=== PATIENT | female | born 1940 | race Caucasian/White ===

== ENCOUNTER → 2017-05-10 | Outpatient (CLI) | payer MEDICARE ==
--- NOTE | 2017-05-10 17:47 | Diagnostic Imaging Report ---
INDICATION: Head pain. AP and lateral views of the head are obtained. COMPARISON: There is no previous study for comparison. FINDINGS: There is an asymmetric curvilinear lucency which appears to reside within the right parietal bone or posterior right frontal bone. This is seen on the AP image and not definitely confirmed on the lateral view. Otherwise, there is no evidence of acute abnormality. No paranasal sinus air-fluid level is appreciated. IMPRESSION: Curvilinear lucency could represent a nondisplaced fracture involving the right frontal or parietal bone. If indicated, CT has greater sensitivity for calvarial assessment. Dictated by: Dictated on workstation # [id number]
== END ==
LOC: RAD 17:16
PROVIDERS: ATTEND Family Medicine
DX: R93.0 Abnormal findings on diagnostic imaging of skull and head, not elsewhere classified (principal)
CPT/HCPCS: 70250

== ENCOUNTER → 2020-08-09 | Outpatient (CLI) | payer MEDICARE, MEDICAID ==
--- NOTE | 2020-08-09 15:48 | Diagnostic Imaging Report ---
INDICATION: Left shoulder pain. TECHNIQUE/COMPARISON: AP, oblique, and transscapular views of the left shoulder were obtained. There is no prior study for comparison. FINDINGS: There is an old fracture deformity of the left proximal humerus involving the humeral neck and proximal shaft. There is no acute fracture. There is degenerative change of the glenohumeral and AC joints of moderate severity. IMPRESSION: Chronic changes of the glenohumeral joint and AC joint. Old healed fracture deformity of the left humeral neck and proximal shaft. No acute appearing finding. Dictated by: Dictated on workstation # [id number]
--- NOTE | 2020-08-09 15:50 | Diagnostic Imaging Report ---
INDICATION: Right hip pain. TECHNIQUE: AP and oblique views of the right hip were obtained at 2:30 PM. FINDINGS: No acute fracture or acute bony abnormality is seen. There is advanced degenerative change of the right hip with severe joint space narrowing and osteophyte formation. There is osteopenia. IMPRESSION: Advanced degenerative findings of the right hip with no acute abnormality. Dictated by: Dictated on workstation # [id number]
--- NOTE | 2020-08-09 16:01 | Diagnostic Imaging Report ---
INDICATION: Left arm pain. TECHNIQUE: AP and lateral views of the left humerus were obtained. FINDINGS: There is old fracture deformity in the humeral neck and proximal shaft. There is no previous study for comparison. There is no new fracture or lytic or blastic lesion. IMPRESSION: Old proximal humeral fracture deformity. No acute abnormality of the left humerus. Dictated by: Dictated on workstation # [id number]
--- NOTE | 2020-08-09 16:08 | Diagnostic Imaging Report ---
INDICATION: Recent fall. Now with neck pain. COMPARISON: None. FINDINGS: Frontal, lateral, and open-mouth radiographic views of the cervical spine were obtained. There is a type I fracture of the odontoid. The more cephalad fracture fragment is mildly subluxed to the left as well. Additionally, there is asymmetry of the distance between the base of the dens and [place]. The lateral view shows slight grade 1 anterolisthesis at C4-C5 and slight grade 1 retrolisthesis at C5-C6. There is no evidence of jumped facets. The vertebral body heights are maintained. There are mild multilevel degenerative changes consisting of intervertebral disc height loss with multilevel facet arthropathy, left greater than right. IMPRESSION: 1. Type I odontoid fracture. Further evaluation with CT or MRI is recommended for complete characterization. 2. The report was called and faxed to Michelle in the office of Dr. Fernández by [email or web address]@4:06 PM. Dictated by: Dictated on workstation # [id number]
--- NOTE | 2020-08-09 16:19 | Diagnostic Imaging Report ---
INDICATION: Fall and back pain. TIME OF EXAM: 2:28 PM. TECHNIQUE: Three views of the lumbar spine were obtained. FINDINGS: The curvature and alignment are normal apart from minimal anterolisthesis of L4 on L5. The vertebral body heights are well-maintained. No acute compression fracture is detected. There is generalized degenerative disc disease with variable disc space narrowing. The aorta is partially calcified. IMPRESSION: Lumbar spondylosis. No acute bony abnormality is detected. Dictated by: Dictated on workstation # [id number]
== END ==
LOC: RAD 13:49
PROVIDERS: ATTEND Family Medicine
DX: S12.110A Anterior displaced Type II dens fracture, initial encounter for closed fracture (principal); S12.9XXA Fracture of neck, unspecified, initial encounter; S42.202D Unspecified fracture of upper end of left humerus, subsequent encounter for fracture with routine healing; M47.816 Spondylosis without myelopathy or radiculopathy, lumbar region; M16.9 Osteoarthritis of hip, unspecified; W19.XXXA Unspecified fall, initial encounter; W19.XXXD Unspecified fall, subsequent encounter
CPT/HCPCS: 72040; 72100; 73030; 73060; 73502

== ENCOUNTER → 2020-08-10 | Outpatient (CLI) | payer MEDICARE, MEDICAID ==
--- NOTE | 2020-08-10 10:03 | Diagnostic Imaging Report ---
PROCEDURE: CT cervical spine without contrast. TECHNIQUE: Multiple contiguous axial images were obtained through the cervical spine without the use of intravenous contrast. Sagittal and coronal reformations were then performed. Auto Exposure Controls were utilized during the CT exam to meet ALARA standards for radiation dose reduction. INDICATION: Fall with type I odontoid fracture. COMPARISON: Correlation is made with cervical spine radiograph from one day earlier. FINDINGS: Curvature of the cervical spine is normal. There is minimal anterolisthesis at C4 on C5. Multilevel degenerative disc disease is noted, greatest at C5-C6 and C6-C7 levels, with disc space narrowing and marginal osteophyte formation. Uncovertebral joint degenerative change results in severe left-sided neural foraminal stenosis at C3-C4 level as well as the C4-C5 level. There are severe bilateral neural foraminal stenosis at C5-C6 and C6-C7 levels. There are marked hypertrophic facet degenerative changes on the left at the C2-C3, C3-C4 and C4-C5 levels. No definite fracture is identified. In particular, the odontoid appears to be intact. No odontoid fracture is identified. IMPRESSION: Severe cervical spondylosis. No acute bony abnormality is identified. Dictated by: Dictated on workstation # [id number]
== END ==
LOC: RAD 11:45
PROVIDERS: ATTEND Family Medicine
DX: M47.812 Spondylosis without myelopathy or radiculopathy, cervical region (principal)
CPT/HCPCS: 72125

== ENCOUNTER → 2021-02-22 | Outpatient (CLI) | payer MEDICARE, MEDICAID | LOC: CARD 14:30 | PROVIDERS: ATTEND Family Medicine | DX: I49.9 Cardiac arrhythmia, unspecified (principal) | CPT/HCPCS: 93005 ==

== ENCOUNTER → 2021-03-01 | Outpatient (CLI) | payer MEDICARE, MEDICAID | LOC: CARD 11:00 | PROVIDERS: ATTEND Family Medicine | DX: I49.9 Cardiac arrhythmia, unspecified (principal); I51.7 Cardiomegaly | CPT/HCPCS: 93225; 93226; 93306 ==

== ENCOUNTER → 2021-06-07 | Outpatient (CLI) | payer MEDICARE, MEDICAID ==
[~2021-06-07] MED LIST: CATHETER FLUSH 10 ML SYR IV PRN; REGADENOSON 0.4 MG/5 ML SYR (LEXISCAN) IV ONE
[2021-06-07 09:27] VITALS: BP 135/81
--- NOTE | 2021-06-07 12:38 | Cardiology Stress Test Report ---
Stress Test Report Date of Procedure/Referring: Date of Procedure: Jun 07, 2021 PCP Marilee Monzon MD Admitting Physician Stacia Fernández DO Indications: HTN Baseline Heart Rate: 54 Baseline Blood Pressure: Blood Pressure Systolic: 135 Blood Pressure Diastolic: 81 Baseline Vitals Vital Signs Date Time Temp Pulse Resp B/P (MAP) Pulse Ox O2 Delivery O2 Flow Rate FiO2 06/07/21 09:27 54 18 135/81 (99) 98 Room Air Baseline EKG: Baseline EKG: NSR Summary After explaining the procedure to the patient, she signed a consent and then brought to the stress nuclear laboratory. Patient received 0.4 mg Lexiscan for stress test, ECG, heart rate and blood pressure were monitored continuously. Resting and stress dose of radio tracer were injected, imaging was acquired and reviewed in short axis, horizontal long axis and vertical long axis views. TID: 1.05 SSS: 6 SDS: 3 EF: 50 1. Patient tolerated Lexiscan well 2. Extracardiac attenuation with breast attenuation and the left arm was kept on the side during acquiring images, there is reversible ischemia involving the mid to apical anterior wall and anterior lateral wall, could be secondary to the extracardiac attenuation 3. Normal left ventricular size, EF 50% MARILEE MONZON MD Jun 07, 2021 12:38
== END ==
LOC: CARD 08:00
PROVIDERS: ATTEND Internal Medicine Cardiovascular Disease
DX: I10 Essential (primary) hypertension (principal); I25.10 Atherosclerotic heart disease of native coronary artery without angina pectoris
CPT/HCPCS: 78452; 93017; A9502

== ENCOUNTER 2021-06-28 11:00 | Day surgery (SDC) | payer MEDICARE, MEDICAID ==
[~2021-06-28] VITALS: Ht 152.4 cm; Wt 82.6 kg
[2021-06-28] VITALS (15 sets, daily range): BP systolic 113–152; BP diastolic 55–82
--- OUTSIDE RECORDS SUMMARY | 2021-06-28 08:55 | XMS REPORT | CCD ---
Author Author Kimberley Fernández D.O. Organization [facility] Address [address] [place] [address] Phone Care Team Providers [employer] Maker Name Role Phone PP Unavailable CCM Unavailable Summary Purpose Interface Exchange Insurance Providers Payer name Policy type / Coverage type Covered green party ID Effective Begin Date Effective End Date WPS MEDICARE PART B [place] Medicare Part B [id number] Unknown [facility] Medicare Part B [id number] Un known Family history Father Diagnosis Age At Onset Stroke Unknown Brother Diagnosis Age At Onset Amyotrophic lateral sclerosis Unknown Cancer Unknown Mother Diagnosis Age At Onset *Denies any medical problems Unknown Child Diagnosis Age At Onset Cystic fibrosis Unknown Social History Social History Element Codes Description Effective Dates Marital status Unknown 01/04/2010 Number of children Unknown 6 01/04/2010 Employment Unknown Currently employed 01/04/2010 Allergies, Adverse Reactions, Alerts Substance Reaction Codes Entered Date Inactivated Date Status * NO KNOWN ENVIRONMENTAL ALLERGIES Unknown 01/04/2010 N o Inactive Date Active _ reaction, Unknown 08/09/2020 No Inactive Date Active SULFA (SULFONAMIDE ANTIBIOTICS) Unknown 01/13/2010 No I nactive Date Active * NO KNOWN FOOD ALLERGIES Unknown 01/04/2010 No Inactiv e Date Active Problems Condition Codes Effective Dates Condition Status Abnormal EKG ICD-10: R94.31 ICD-9: 794.31 02/23/2021 Active Bilateral lower extremity edema ICD-10: R60.0 ICD-9: 782.3 01/26/2021 Active Cardiac arrhythmia, unspecified cardiac arrhythmia typ e ICD-10: I49.9 ICD-9: 427.9 02/22/2021 Active Adverse effect of unspecified drugs, med icaments and biological substances, initial encounter ICD-10: T50.905A 02/22/2021 Active Bradycardia, drug induced ICD-10: R00.1 ICD-9: 427.89 02/22/2021 Active Sinus tachycardia ICD-10: R00.0 ICD-9: 427.89 02/14/2021 Active Edema ICD-10: R60.9 ICD-9: 782.3 02/14/2021 Active 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 ICD-9: 454.9 01/26/2021 Active Venous stasis dermatitis of both lower extremities ICD -10: I87.2 ICD-9: 454.1 01/26/2021 Active Decreased range of motion of left shoulder ICD-10: M25 .612 ICD-9: 719.51 09/28/2020 Active Encounter for general adult medical examination withou t abnormal findings ICD- 10: Z00.00 ICD-9: V70.9 11/02/2020 Active Left arm weakness ICD-10: R29.898 ICD-9: 729.89 08/09/2020 Active Left shoulder pain ICD-10: M25.512 ICD-9: 719.41 08/09/2020 Active Tendonitis of left rotator cuff ICD-10: M75.82 ICD-9: 726.10 09/28/2020 Active Fatigue ICD-10: R53.83 ICD-9: 780.79 08/09/2020 Active Right hip pain ICD-10: M25.551 ICD-9: 719.45 08/09/2020 Active Right lower quadrant pain ICD-10: R10.31 ICD-9: 789.03 08/09/2020 Active ALLERGIC URTICARIA ICD-9: 708.0 01/13/2010 Active *Denies any medical problems Unknown 01/04/2010 Act jumana CANDIDIASIS OF UNSPECIFIED SITE ICD-9: 112.9 01/04/2010 Active CELLULITIS ICD-9: 682.9 01/04/2010 Active Medications Medication Codes Instructions Start Date Stop Date Status Fill Instructions potassium chloride ER 20 mEq tablet,extended release RxNorm: 946972 Take 1 Tablet(s) Oral QOD 06/22/2021 09/19/2021 Active Lasix 20 mg tablet RxNorm: 370447 Take 1 Tablet(s) Oral QOD 06/22/ 021 09/19/2021 Active metoprolol succinate ER 25 mg tablet,extended release 24 hr RxNorm: 327641 Take 1 Tablet(s) Oral QD 06/22/2021 09/19/2021 Active potassium chloride ER 20 mEq tablet,extended release RxNorm: 015639 Take 1 Tablet(s) Oral QOD 05/23/2021 05/23/2021 Inactive Lasix 20 mg tablet RxNorm: Take 1 Tablet(s) Oral QOD 021 05/23/2021 Inactive metoprolol succinate ER 25 mg tablet,extended release 24 hr RxNorm: 981635 Take 1 Tablet(s) Oral QD 05/23/2021 06/21/2021 Inactive potassium chloride ER 20 mEq tablet,extended release RxNorm: 19800928 Take 1 Tablet(s) Oral QOD 04/24/2021 04/24/2021 Inactive metoprolol succinate ER 25 mg tablet,extended release 24 hr RxNorm: 302124 Take 1 Tablet(s) Oral QD 04/24/2021 04/24/2021 Inactive Lasix 20 mg tablet RxNorm: Take 1 Tablet(s) Oral QOD 021 04/24/2021 Inactive potassium chloride ER 20 mEq tablet,extended release RxNorm: 406304 Take 1 Tablet(s) Oral QOD 03/24/2021 03/24/2021 Inactive metoprolol succinate ER 25 mg tablet,extended release 24 hr RxNorm: 157131 Take 1 Tablet(s) Oral QD 03/24/2021 04/22/2021 Inactive Lasix 20 mg tablet RxNorm: Take 1 Tablet(s) Oral QOD 021 03/24/2021 Inactive metoprolol succinate ER 25 mg tablet,extended release 24 hr RxNorm: 188782 Take 1 Tablet(s) Oral QD 02/23/2021 02/23/2021 Inactive potassium chloride ER 20 mEq tablet,extended release RxNorm: 348547 1 Tablet(s) Oral QD 01/31/2021 03/02/2021 Inactive Lasix 20 mg tablet RxNorm: 1 Tablet(s) Oral QD 01/31/202102/21 Inactive Lasix 20 mg tablet RxNorm: 1 Tablet(s) Oral QD 01/26/202101/21 Inactive potassium chloride ER 20 mEq tablet,extended release RxNorm: 970437 1 Tablet(s) Oral QD 01/26/2021 01/30/2021 Inactive prednisone 20 mg tablet RxNorm: 222359 1 Tablet(s) Oral QD 09/28/1910/03/2020 Inactive Prednisone 20 mg Tab RxNorm: 101294 1 Tablet(s) PO BID 01/13/2010 Inactive Cordran SP 0.05 % Topical Cream RxNorm: 113191 TOP BID 01/13/2010 01/19/2010 Inactive Septra DS 160 mg-800 mg Tab RxNorm: 391757 1 Tablet(s) PO BID 01/0401/13/2010 Inactive Mupirocin 2 % Ointment RxNorm: 078915 TOP TID Apply to affected lesion on lt. breast 2-3 times daily with dressing change. 01/04/2010 01/10/2010 [place] Lotrimin 1 % Topical Cream RxNorm: 513905 TOP BID 01/04/201001/17 Inactive Medication Administered No Medication Administered data Immunizations No Immunization data Results Observation Observation Code Item Item Code Result Date S vice Location COMPREHENSIVE METABOLIC 44641 AST 19 U/L 2020 Unknown COMPREHENSIVE METABOLIC 85671 ALT 15 U/L 2020 Unknown COMPREHENSIVE METABOLIC 52909 BUN 25 mg/dL 2020 Unknown COMPREHENSIVE METABOLIC 04228 ALBUMIN 4.0 g/dL 2020 Unknown COMPREHENSIVE METABOLIC 34057 CHLORIDE 107 mmol/L 02/14 Unknown COMPREHENSIVE METABOLIC 12706 Bili Total 0.5 mg/dL 02/14 Unknown COMPREHENSIVE METABOLIC 22652 ALK PHOS 88 U/L 2020 Unknown COMPREHENSIVE METABOLIC 93472 SODIUM 141 mmol/L 02/14 Unknown COMPREHENSIVE METABOLIC 24870 CREATININE 1.00 mg/dL 01/22 Unknown COMPREHENSIVE METABOLIC 69969 CALCIUM 9.9 mg/dL 2020 Unknown COMPREHENSIVE METABOLIC 82835 POTASSIUM 4.3 mmol/L 02/14 Unknown COMPREHENSIVE METABOLIC 66107 Total Protein 7.3 g/dL Unknown COMPREHENSIVE METABOLIC 21321 Glucose 101 mg/dL 2020 Unknown COMPREHENSIVE METABOLIC 53571 Bicarbonate 26 mmol/L 01/22 Unknown COMPREHENSIVE METABOLIC 38581 AGAP 8 mmol/L 2020 Unknown GFR CALC 5720061 GFR Non Afr Amr 53 mL/min 02/14/2021 Unk nown GFR CALC [id number] GFR Afr Amr >60 mL/min 02/14/2021 Unknow n COMPREHENSIVE METABOLIC 69016 AST 18 U/L 2019 Unknown COMPREHENSIVE METABOLIC 63295 ALT 12 U/L 2019 Unknown COMPREHENSIVE METABOLIC 38173 BUN 19 mg/dL 2019 Unknown COMPREHENSIVE METABOLIC 82779 ALBUMIN 4.3 g/dL 2019 Unknown COMPREHENSIVE METABOLIC 22841 CHLORIDE 107 mmol/L 08/09 Unknown COMPREHENSIVE METABOLIC 03620 Bili Total 0.7 mg/dL 08/09 Unknown COMPREHENSIVE METABOLIC 22788 ALK PHOS 77 U/L 2019 Unknown COMPREHENSIVE METABOLIC 56778 SODIUM 143 mmol/L 08/09 Unknown COMPREHENSIVE METABOLIC 06791 CREATININE 0.78 mg/dL 07/24 Unknown COMPREHENSIVE METABOLIC 64260 CALCIUM 9.8 mg/dL 2019 Unknown COMPREHENSIVE METABOLIC 12815 POTASSIUM 4.2 mmol/L 08/09 Unknown COMPREHENSIVE METABOLIC 47118 Total Protein 7.4 g/dL Unknown COMPREHENSIVE METABOLIC 34394 Glucose 96 mg/dL 2019 Unknown COMPREHENSIVE METABOLIC 69150 Bicarbonate 23 mmol/L 07/24 Unknown COMPREHENSIVE METABOLIC 75408 AGAP 13 mmol/L 2019 Unknown THYROID STIMULATING HORMONE 79951 TSH 0.912 uIU/mL 08/09/2020 Unknown GFR CALC 1406468 GFR Non Afr Amr >60 mL/min 08/09/2020 Un known GFR CALC 7233881 GFR Afr Amr >60 mL/min 08/09/2020 Unknow n COMPLETE BLOOD COUNT [id number] WBC 6.8 10e9/L 08/09/20 20 Unknown COMPLETE BLOOD COUNT [id number] RBC 4.13 10e12/L 2019 Unknown COMPLETE BLOOD COUNT 8894509 HEMOGLOBIN 12.9 g/dL 08/09/20 20 Unknown COMPLETE BLOOD COUNT [id number] HEMATOCRIT 40.8 % 08/09/20 20 Unknown COMPLETE BLOOD COUNT 7048391 MCV 98.8 fL 0 Unknown COMPLETE BLOOD COUNT 9604017 MCH 31.2 pg 0 Unknown COMPLETE BLOOD COUNT 1473841 MCHC 31.6 g/dL 0 Unknown COMPLETE BLOOD COUNT 8375351 PLATELET COUNT 237 10e9/L Unknown COMPLETE BLOOD COUNT 2841587 Mean Plt Volume 10.8 fL Unknown COMPLETE BLOOD COUNT 8208648 Neut Auto 64.7 % 0 Unknown COMPLETE BLOOD COUNT 1723038 Lymph Auto 24.7 % 08/09/20 20 Unknown COMPLETE BLOOD COUNT 0910539 [place] Auto 9.3 % 0 Unknown COMPLETE BLOOD COUNT 7078346 RDW 14.9 % 0 Unknown COMPLETE BLOOD COUNT 7102163 Eos Auto 1.2 % 0 Unknown COMPLETE BLOOD COUNT 8930779 Baso Auto 0.1 % 0 Unknown COMPLETE BLOOD COUNT 1746548 Neutrophil Abs 4.40 10e9/L Unknown COMPLETE BLOOD COUNT [id number] Lymphocyte Abs 1.68 10e9/L Unknown COMPLETE BLOOD COUNT 9607209 Monocyte Abs 0.63 10e9/L 07/24 Unknown COMPLETE BLOOD COUNT [id number] Eosinophil Abs 0.08 10e9/L Unknown COMPLETE BLOOD COUNT [id number] RDW-SD 52.7 fL 0 Unknown COMPLETE BLOOD COUNT [id number] Basophil Abs 0.01 10e9/L 07/24 Unknown Procedures Procedure Codes Date COMPREHEN METABOLIC PANEL CPT-4: 13614 02/14/2021 ROUTINE VENIPUNCTURE CPT-4: 26281 02/14/2021 PPPS, subseq visit CPT-4: G0439 11/02/2020 DRAIN/INJECT JOINT/BURSA CPT-4: 08671 09/28/2020 TRIAMCINOLONE ACET INJ NOS CPT-4: J3301 09/28/2020 DEXAMETHASONE SODIUM PHOS CPT-4: J1100 09/28/2020 ROUTINE VENIPUNCTURE CPT-4: 25923 08/09/2020 COMPREHEN METABOLIC PANEL CPT-4: 83233 08/09/2020 COMPLETE CBC W/AUTO DIFF WBC CPT-4: 91431 08/09/2020 ASSAY THYROID STIM HORMONE CPT-4: 19107 08/09/2020 THER/PROPH/DIAG INJ SC/IM CPT-4: 42286 01/04/2010 CEFTRIAXONE SODIUM INJECTION CPT-4: J0696 01/04/2010 DRAINAGE OF SKIN ABSCESS CPT-4: 35250 01/04/2010 Vital Signs Date Vital 02/23/2021 Blood Pressure 1: 136/72 Code: 8480-6 Heart Rate 1: 79 bpm Respiratory Rate: 16 bpm SpO2: 97% Temperature: 36.4 (C) / 97.5 (F) We ight: 179 lbs Code: 54521-6 02/22/2021 Blood Pressure 1: 127/70 Code: 8480-6 Heart Rate 1: 51 bpm Respiratory Rate: 16 bpm SpO2: 99% Temperature: 36.6 (C) / 97.8 (F) We ight: 178 lbs Code: 01842-6 02/15/2021 Blood Pressure 1: 136/74 Code: 8480-6 Heart Rate 1: 72 bpm Temperature: .0 (C) / 32.0 (F) 02/14/2021 Blood Pressure 1: 136/81 Code: 8480-6 Heart Rate 1: 126 bpm Respiratory Rate: 16 bpm SpO2: 98% Temperature: 36.1 (C) / 97.0 (F) We ight: 178 lbs Code: 76141-8 01/31/2021 Blood Pressure 1: 132/80 Code: 8480-6 BMI: 35.0 Code: 01632-1 Heart Rate 1: 76 bpm Height: 5' Code: 8302-2 Respiratory Rate: 20 bpm SpO2: 96% Temperature: 36.6 (C) / 97.9 (F) Weight: 179 lbs Code: 45223-1 01/26/2021 Blood Pressure 1: 124/78 Code: 8480-6 Heart Rate 1: 94 bpm Respiratory Rate: 15 bpm SpO2: 97% Temperature: 36.4 (C) / 97.5 (F) We ight: 176 lbs Code: 64899-2 11/02/2020 Blood Pressure 1: 116/78 Code: 8480-6 BMI: 34.2 Code: 21787-0 Heart Rate 1: 84 bpm Height: 5' Code: 8302-2 Respiratory Rate: 20 bpm SpO2: 96% Temperature: 36.9 (C) / 98.4 (F) Weight: 175 lbs Code: 97752-8 09/28/2020 Blood Pressure 1: 131/77 Code: 8480-6 Heart Rate 1: 122 bpm Respiratory Rate: 17 bpm SpO2: 99% Temperature: 36.6 (C) / 97.9 (F) We ight: 180 lbs Code: 96088-1 08/09/2020 Blood Pressure 1: 126/68 Code: 8480-6 Heart Rate 1: 84 bpm Respiratory Rate: 20 bpm SpO2: 99% Temperature: 36.6 (C) / 97.9 (F) We ight: 177 lbs Code: 85764-0 01/13/2010 Blood Pressure 1: 130/70 Code: 8480-6 BMI: 36.7 Code: 84112-6 Heart Rate 1: 87 bpm Height: 5' Code: 8302-2 SpO2: 99% Temperature: 38. 8 (C) / 101.9 (F) Weight: 188 lbs Code: 91951-8 01/04/2010 Blood Pressure 1: 136/78 Code: 8480-6 BMI: 36.7 Code: 84761-4 Heart Rate 1: 84 bpm Height: 5' Code: 8302-2 Temperature: 38.0 (C) / 100.4 (F) We ight: 188 lbs Code: 81176-0 Functional Status No Functional Status data Reason For Visit Reason For Visit Effective Dates Notes edema 02/22/2021 follow up 02/14/2021 follow up 01/31/2021 swelling 01/26/2021 well woman exam (65+ years) 11/02/2020 Medicare Ann ual---no complaints follow up 09/28/2020 ~generic 08/09/2020 Re-establishing visi t rash 01/13/2010 arthropod bite 01/04/2010 Encounters Encounter Performer Location Codes Date ([id number]) OFFICE/OUTPATIENT VISIT EST Diagnosis: Cardiac arrhythmia, unspecified cardiac arrhythmia type[ICD10: I49.9] Diagnosis: Bilateral lower extremity edema[ICD10: R60.0] Diagnosis: Abnormal EKG[ICD10: R94.31] Rosalba PALOMINO CPT-4: 23762 02/23/2021 ([id number]) OFFICE/OUTPATIENT VISIT EST Diagnosis: Cardiac arrhythmia, unspecified cardiac arrhythmia type[ICD10: I49.9] Diagnosis: Adverse effect of unspecified drugs, medicaments and biological substances, initial encounter[ICD10: T50.905A] Diagnosis: Bradycardia, drug induced[ICD10: R00.1] Diagnosis: Bilateral lower extremity edema[ICD10: R60.0] [facility] CPT-4: 59605 02/22/2021 ([id number]) NURSE/OUTPATIENT VISIT EST Diagnosis: Sinus tachycardia[ICD10: R00.0] Stacia Allanlashae SATCIA [facility] CPT-4: 25402 02/15/2021 ([id number]) OFFICE/OUTPATIENT VISIT EST Diagnosis: Edema[ICD10: R60.9] Diagnosis: Sinus tachycardia[ICD10: R00.0] Stacia Allanlashae GOLDSTEIN [facility] CPT-4: 51170 02/14/2021 ([id number]) OFFICE/OUTPATIENT VISIT EST Diagnosis: Bilateral lower extremity edema[ICD10: R60.0] Stacia Allanlashae GOLDSTEIN [facility] CPT-4: 79550 01/31/2021 OFFICE/OUTPATIENT VISIT EST Diagnosis: Venous stasis dermatitis of both lower extremities[ICD10: I87.2] Diagnosis: Bilateral lower extremity edema[ICD10: R60.0] 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] Rosalba Vegaloretokristin PANTOJAGLENN [facility] CPT-4: 76307 01/26/2021 ([id number]) OFFICE/OUTPATIENT VISIT EST Diagnosis: Tendonitis of left rotator cuff[ICD10: M75.82] Diagnosis: Decreased range of motion of left shoulder[ICD10: M25.612] Stacia Allanlashae ALLISONSTACIA [place] [facility] CPT-4: 31187 09/28/2020 ([id number]) OFFICE/OUTPATIENT VISIT NEW Diagnosis: Left shoulder pain[ICD10: M25.512] Diagnosis: Right hip pain[ICD10: M25.551] Diagnosis: Left arm weakness[ICD10: R29.898] Diagnosis: Right lower quadrant pain[ICD10: R10.31] Diagnosis: Fatigue[ICD10: R53.83] Stacia Swartz [facility] CPT-4: 83337 08/09/2020 ([id number]) OFFICE/OUTPATIENT VISIT, ELLA FERN[facility]NDEZ DO [facility] CPT-4: 07948 01/13/2010 ([id number]) OFFICE/OUTPATIENT VISIT, ELLA FERNÁNDEZ DO [facility] CPT-4: 73404 01/04/2010 Plan of Care Planned Activity Notes Codes Status Date Visit Plan: Stop bystolic d/t bradycardi a. Start metoprolol. Echo and 24 hour holter monitor ordered. Referral sent to cardiology- Dr. Monzon. Discussed EKG with patient and her daughter. Questions answered. F/U before appt with any concerns. Go to ED/call 911 for chest pain or other severe symptoms. 02/23/2021 Visit Diagnosis Plan: Cardiac arrhythmia, unspecified cardiac arrhythmia type Discussion: When bystolic was initiated HR was 130's. At yesterday's appt HR was 48-55- was 110 per EKG later yesterday. Today it is normal and regular- 70's. ICD-9 : 427.9 ICD-10 : I49.9 02/23/2021 Visit NOS Plan: Plan Notes: Stop bystolic d/ t bradycardia.... 02/23/2021 Appointment: Rosalba Angel WPtel: [phone] [facility] [address] FOLLOW UP 02/23/2021 Patient Education: Patient Medication Summary Completed 02/23/2021 Visit Plan: Will send to AV now for EKG d/t arrhythmia and bradycardia. Stop bystolic, come in tomorrow to recheck pulse. Continue lasix and K+ every other day. 02/22/2021 Visit NOS Plan: Plan Notes: Will send to [facility] now for EKG d... 02/22/2021 Appointment: Rosalba Angel WPtel: [phone] [facility] [address] FOLLOW UP 02/22/2021 Patient Education: Patient Medication Summary Completed 02/22/2021 Appointment: Stacia Fernández WPtel: [phone] [facility] BP CHECK 02/15/2021 Visit Diagnosis Plan: Edema Discussion: Low Na diet Ch zoila Chem 7 now Will adjust lasix and K based on lab--has not take yet today so will hold lasix/K today ICD-9 : 782.3 ICD-10 : R60.9 02/14/2021 Visit Diagnosis Plan: Sinus tachycardia Discussion: By stolic 5mg now To ER if CP/Dyspnea/Near-syncope, etc. Repeat bystolic 5mg in AM and come by tomorrow for BP and pulse check ICD-9 : 427.89 ICD-10 : R00.0 02/14/2021 Appointment: Stacia Fernández WPtel: [phone] [facility] FOLLOW UP 02/14/2021 Visit Diagnosis Plan: Bilateral lower extremity edema Discussion: Low Na diet--patient admits she eats out a lot Continue lasix and potassium Admits to sleeping in a recliner--discussed that bed is better for edema Check Chem 7 and fwup in 2weeks ICD-9 : 782.3 ICD-10 : R60.0 01/31/2021 Appointment: Stacia Fernández WPtel: [phone] [facility] FOLLOW UP 01/31/2021 Visit Plan: Will start lasix and K+ and f/u on Saturday or sooner for any concerns. Elevate legs. Increase water intake. Limit salt intake. 01/26/2021 Visit NOS Plan: Follow Up: 5 days Plan Notes: Will start lasix and K+ and f/... 01/26/2021 Appointment: Rosalba Angel WPtel: [phone] [facility] [address] ACUTE ILLNESS 01/26/2021 Patient Education: Patient Medication Summary Completed 01/26/2021 Visit Diagnosis Plan: [facility]counter for [facility] examination without abnormal findings Discussion: Mediterranean diet Combinati on of cardio and weight bearing exercise Had lab in July Defers flu, pneumonia, COVID vaccines ICD-9 : V70.9 ICD-10 : Z00.00 11/02/2020 Visit Diagnosis Plan: Decreased range of motion of lef t shoulder Discussion: Can DC PT Discussed seeing ortho--patient wants to consider this and let us know ICD-9 : 719.51 ICD-10 : M25.612 11/02/2020 Appointment: Stacia Fernández WPtel: [facility] [place] Annual Well Visit 11/02/2020 Visit Diagnosis Plan: Tendonitis of left rotator cuff Discussion: Injection as above followed by 5 days of prednisone and resume PT for ROM/strenthening and will fwup in 1month ICD-9 : 726.10 ICD-10 : M75.82 09/28/2020 Appointment: Stacia Fernández WPtel: [facility] [place] FOLLOW UP 09/28/2020 Patient Education: prednisone- [employer] Coupon [id number] [email or web address] Completed 09/28/2020 Visit Diagnosis Plan: Right hip pain Discussion: Check right hip x-ray ICD-9 : 719.45 ICD-10 : M25.551 08/09/2020 Visit Diagnosis Plan: Left shoulder pain Discussion: C heck left shoulder x-ray ICD-9 : 719.41 ICD-10 : M25.512 08/09/2020 Visit Diagnosis Plan: Left arm weakness Discussion: Ch zoila cervical spine x-ray ICD-9 : 729.89 ICD-10 : R29.898 08/09/2020 Visit Diagnosis Plan: Right lower quadrant pain Discus sujit: Check lab ICD-9 : 789.03 ICD-10 : R10.31 08/09/2020 Appointment: Stacia Fernández WPtel: [facility] [place] RE-ESTABLISH 08/09/2020 Care Plan: X-RAY EXAM NECK SPINE 4/5VWS LOINC : 88733-1 Pending 08/09/2020 Care Plan: X-RAY EXAM OF SHOULDER LOINC : 90665-9 Pending 08/09/2020 Care Plan: X-RAY EXAM OF HIP LOINC : 247 62-7 Pending 08/09/2020 Care Plan: X-RAY EXAM L-S SPINE 2/3 VWS LOINC : 34432-5 Pending 08/09/2020 Visit Plan: Pt is instructed to stop usha ing Sulfa medication (Septra DS) culture results were mostly normal with some "rare positive cocci" present on the fluid taken from the left breast lesion at her last visit. Pt. has reported good results with the khloe resolving under each breast. Pt. reports that she tried that medication on her arms but it made her condition worse. Pt is advised to take Benadryl 25 mg at night (declines to take it any other time due to sleepiness). Pt. is further instructed that after stopping the medication and starting the steroid she does not improve or worsens she needs to be re -evaluated. 01/13/2010 Appointment: Chelly Hernandez WPtel: [phone] [facility] ACUTE ILLNESS 01/13/2010 Patient Education: Patient Medication Summary Completed 01/13/2010 Visit Plan: Pt. has a moderately infecte d lesion on the inner aspect of her left breast. She has been using home remedies to "draw the infection out" but is having quite a bit of discomfort and now has fever. Pt. is given an oral antibiotic (Septra DS and Mupirocin topical cream) to apply to the site. In addition, the pt. 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 Discussed allowing the area to air dry and treatment plan Lotrimin BID for 14 days. Pt is to seek re-eval if her symptoms worsen or do not resolve with treatment. Pt. is aware she will be notified of the culture results by telephone and that further treatment may be necessary due to the severity and nature of the illness. 01/04/2010 Appointment: Chelly Hernandez WPtel: [phone] [facility] ACUTE ILLNESS 01/04/2010 Patient Education: Patient Medication Summary Completed 01/04/2010 Instructions Comment . Stop bystolic d/t bradycardia. Start m etoprolol. Echo and 24 hour holter monitor ordered. Referral sent to cardiology- Dr. Monzon. Discussed EKG with patient and her daughter. Questions answered. F/U before appt with any concerns. Go to ED/call 911 for chest pain or other severe symptoms. . Will send to [facility] now for EKG d/t arrhy thmia and bradycardia. Stop bystolic, come in tomorrow to recheck pulse. Continue lasix and K+ every other day. . Will start lasix and K+ and f/u on Sat or sooner for any concerns. Elevate legs. Increase water intake. Limit salt intake. . Pt is instructed to stop taking Sulfa medication (Septra DS) culture results were mostly normal with some "rare positive cocci" present on the fluid taken from the left breast lesion at her last visit. Pt. has reported good results with the khloe resolving under each breast. Pt. reports that she tried that medication on her arms but it made her condition worse. Pt is advised to take Benadryl 25 mg at night (declines to take it any other time due to sleepiness). Pt. is further instructed that after stopping the medication and starting the steroid she does not improve or worsens she needs to be re-evaluated. . Pt. has a moderately infected lesion o n the inner aspect of her left breast. She has been using home remedies to "draw the infection out" but is having quite a bit of discomfort and now has fever. Pt. is given an oral antibiotic (Septra DS and Mupirocin topical cream) to apply to the site. In addition, the pt. 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 Discussed allowing the area to air dry and treatment plan Lotrimin BID for 14 days. Pt is to seek re-eval if her symptoms worsen or do not resolve with treatment. Pt. is aware she will be notified of the culture results by telephone and that further treatment may be necessary due to the severity and nature of the illness. Medical Equipment No Medical Equipment data Health Concerns Section Health Concerns data not found Goals Section Goals data not found Interventions Section Interventions data not found Health Status Evaluations/Outcomes Section Health Status Evaluations/Outcomes data not found Advance Directives No Advance Directive data
--- OUTSIDE RECORDS SUMMARY | 2021-06-28 08:55 | XMS REPORT | CCD ---
Author Author Kimberley Fernández D.O. Organization [facility] Address [address] [place] [address] Phone Care Team Providers Care Assembly Room Supervisor Name Role Phone PP Unavailable CCM Unavailable Summary Purpose Interface Exchange Insurance Providers Payer name Policy type / Coverage type Covered constitution party ID Effective Begin Date Effective End Date WPS MEDIC[place] PART B [place] Medicare Part B [id number] Unknown [facility] Medicare Part B [id number] Un known Family history Father Diagnosis Age [...] chloride ER 20 mEq tablet,extended release RxNorm: 302333 Take 1 Tablet(s) Oral QOD 05/23/2021 06/21/2021 Active Lasix 20 mg tablet RxNorm: 424698 Take 1 Tablet(s) Oral QOD 05/23/2 021 06/21/2021 Active metoprolol succinate ER 25 mg tablet,extended release 24 hr RxNorm: 983312 Take 1 Tablet(s) Oral QD 04/24/2021 05/23/2021 Inactive potassium chloride ER 20 mEq tablet,extended release RxNorm: 19800928 Take 1 Tablet(s) Oral QOD 04/24/2021 04/24/2021 Inactive Lasix 20 mg tablet RxNorm: Take 1 Tablet(s) Oral QOD 04/24/2021 Inactive potassium chloride ER 20 mEq tablet,extended release RxNorm: 19800928 Take 1 Tablet(s) Oral QOD 03/24/2021 03/24/2021 Inactive metoprolol succinate ER 25 mg tablet,extended release 24 hr RxNorm: 358506 Take 1 Tablet(s) Oral QD 03/24/2021 04/22/2021 Inactive Lasix 20 mg tablet RxNorm: Take 1 Tablet(s) Oral QOD 03/24/2021 Inactive metoprolol succinate ER 25 mg tablet,extended release 24 hr RxNorm: 678427 Take 1 Tablet(s) Oral QD 02/23/2021 02/23/2021 Inactive potassium chloride ER 20 mEq tablet,extended release RxNorm: 028474 1 Tablet(s) Oral QD 01/31/2021 03/02/2021 Inactive Lasix 20 mg tablet RxNorm: 1 Tablet(s) Oral QD 01/31/202102/21 Inactive Lasix 20 mg tablet RxNorm: 1 Tablet(s) Oral QD 01/26/202101/21 Inactive potassium chloride ER 20 mEq tablet,extended release RxNorm: 368829 1 Tablet(s) Oral QD 01/26/2021 01/30/2021 Inactive prednisone 20 mg tablet RxNorm: 207035 1 Tablet(s) Oral QD 09/28/19 21 10/03/2020 Inactive Prednisone 20 mg Tab RxNorm: 654378 1 Tablet(s) PO BID 01/13/2010 Inactive Cordran SP 0.05 % Topical Cream RxNorm: 768989 TOP BID 01/13/2010 01/19/2010 Inactive Septra DS 160 mg-800 mg Tab RxNorm: 584112 1 Tablet(s) PO BID 01/0401/13/2010 Inactive Mupirocin 2 % Ointment RxNorm: 448975 TOP TID Apply to affected lesion on lt. breast 2-3 times daily with dressing change. 01/04/2010 01/10/2010 [place] [facility] Lotrimin 1 % Topical Cream RxNorm: 821761 TOP BID 01/04/201001/17 Inactive Medication Administered No Medication Administered data Immunizations No Immunization data Results Observation Observation Code Item Item Code Result Date S vice Location COMPREHENSIVE METABOLIC 96125 AST 19 U/L 2020 Unknown COMPREHENSIVE METABOLIC 71310 ALT 15 U/L 2020 Unknown COMPREHENSIVE METABOLIC 88686 BUN 25 mg/dL 2020 Unknown COMPREHENSIVE METABOLIC 27074 ALBUMIN 4.0 g/dL 2020 Unknown COMPREHENSIVE METABOLIC 42972 CHLORIDE 107 mmol/L 02/14 Unknown COMPREHENSIVE METABOLIC 54648 Bili Total 0.5 mg/dL 02/14 Unknown COMPREHENSIVE METABOLIC 49153 ALK PHOS 88 U/L 2020 Unknown COMPREHENSIVE METABOLIC 27492 SODIUM 141 mmol/L 02/14 Unknown COMPREHENSIVE METABOLIC 67594 CREATININE 1.00 mg/dL 01/22 Unknown COMPREHENSIVE METABOLIC 06708 CALCIUM 9.9 mg/dL 2020 Unknown COMPREHENSIVE METABOLIC 73892 POTASSIUM 4.3 mmol/L 02/14 Unknown COMPREHENSIVE METABOLIC 73518 Total Protein 7.3 g/dL Unknown COMPREHENSIVE METABOLIC 44276 Glucose 101 mg/dL 2020 Unknown COMPREHENSIVE METABOLIC 57298 Bicarbonate 26 mmol/L 01/22 Unknown COMPREHENSIVE METABOLIC 76041 AGAP 8 mmol/L 2020 Unknown GFR CALC 8937211 GFR Non Afr Amr 53 mL/min 02/14/2021 Unk nown GFR CALC 0525825 GFR Afr Amr >60 mL/min 02/14/2021 Unknow n COMPREHENSIVE METABOLIC 58213 AST 18 U/L 2019 Unknown COMPREHENSIVE METABOLIC 92825 ALT 12 U/L 2019 Unknown COMPREHENSIVE METABOLIC 47283 BUN 19 mg/dL 2019 Unknown COMPREHENSIVE METABOLIC 57138 ALBUMIN 4.3 g/dL 2019 Unknown COMPREHENSIVE METABOLIC 40923 CHLORIDE 107 mmol/L 08/09 Unknown COMPREHENSIVE METABOLIC 01796 Bili Total 0.7 mg/dL 08/09 Unknown COMPREHENSIVE METABOLIC 17100 ALK PHOS 77 U/L 2019 Unknown COMPREHENSIVE METABOLIC 68115 SODIUM 143 mmol/L 08/09 Unknown COMPREHENSIVE METABOLIC 44732 CREATININE 0.78 mg/dL 07/24 Unknown COMPREHENSIVE METABOLIC 88728 CALCIUM 9.8 mg/dL 2019 Unknown COMPREHENSIVE METABOLIC 79259 POTASSIUM 4.2 mmol/L 08/09 Unknown COMPREHENSIVE METABOLIC 92881 Total Protein 7.4 g/dL Unknown COMPREHENSIVE METABOLIC 41720 Glucose 96 mg/dL 2019 Unknown COMPREHENSIVE METABOLIC 22320 Bicarbonate 23 mmol/L 07/24 Unknown COMPREHENSIVE METABOLIC 79888 AGAP 13 mmol/L 2019 Unknown THYROID STIMULATING HORMONE 72289 TSH 0.912 uIU/mL 08/09/2020 Unknown GFR CALC 6443498 GFR Non Afr Amr >60 mL/min 08/09/2020 Un known GFR CALC 7788890 GFR Afr Amr >60 mL/min 08/09/2020 Unknow n COMPLETE BLOOD COUNT 8741347 WBC 6.8 10e9/L 08/09/20 20 Unknown COMPLETE BLOOD COUNT 7601416 RBC 4.13 10e12/L 2019 Unknown COMPLETE BLOOD COUNT [id number] HEMOGLOBIN 12.9 g/dL 08/09/20 20 Unknown COMPLETE BLOOD COUNT 9095839 HEMATOCRIT 40.8 % 08/09/20 20 Unknown COMPLETE BLOOD COUNT 1515521 MCV 98.8 fL 0 Unknown COMPLETE BLOOD COUNT 0153115 MCH 31.2 pg 0 Unknown COMPLETE BLOOD COUNT 8248507 MCHC 31.6 g/dL 0 Unknown COMPLETE BLOOD COUNT 7806614 PLATELET COUNT 237 10e9/L Unknown COMPLETE BLOOD COUNT 3574415 Mean Plt Volume 10.8 fL Unknown COMPLETE BLOOD COUNT 8410840 Neut Auto 64.7 % 0 Unknown COMPLETE BLOOD COUNT 9862808 Lymph Auto 24.7 % 08/09/20 20 Unknown COMPLETE BLOOD COUNT 2510002 [place] Auto 9.3 % 0 Unknown COMPLETE BLOOD COUNT 2493167 RDW 14.9 % 0 Unknown COMPLETE BLOOD COUNT 1728849 Eos Auto 1.2 % 0 Unknown COMPLETE BLOOD COUNT 4697518 Baso Auto 0.1 % 0 Unknown COMPLETE BLOOD COUNT 1506192 Neutrophil Abs 4.40 10e9/L Unknown COMPLETE BLOOD COUNT 2913335 Lymphocyte Abs 1.68 10e9/L Unknown COMPLETE BLOOD COUNT 8472559 Monocyte Abs 0.63 10e9/L 07/24 Unknown COMPLETE BLOOD COUNT 4717715 Eosinophil Abs 0.08 10e9/L Unknown COMPLETE BLOOD COUNT 5978846 RDW-SD 52.7 fL 0 Unknown COMPLETE BLOOD COUNT [id number] Basophil Abs 0.01 10e9/L 07/24 Unknown Procedures Procedure Codes Date COMPREHEN METABOLIC PANEL CPT-4: 26254 02/14/2021 ROUTINE VENIPUNCTURE CPT-4: 63021 02/14/2021 PPPS, subseq visit CPT-4: G0439 11/02/2020 DRAIN/INJECT JOINT/BURSA CPT-4: 30978 09/28/2020 TRIAMCINOLONE ACET INJ NOS CPT-4: J3301 09/28/2020 DEXAMETHASONE SODIUM PHOS CPT-4: J1100 09/28/2020 ROUTINE VENIPUNCTURE CPT-4: 39538 08/09/2020 COMPREHEN METABOLIC PANEL CPT-4: 12602 08/09/2020 COMPLETE CBC W/AUTO DIFF WBC CPT-4: 58476 08/09/2020 ASSAY THYROID STIM HORMONE CPT-4: 19649 08/09/2020 THER/PROPH/DIAG INJ SC/IM CPT-4: 72818 01/04/2010 CEFTRIAXONE SODIUM INJECTION CPT-4: J0696 01/04/2010 DRAINAGE OF SKIN ABSCESS CPT-4: 49833 01/04/2010 Vital Signs Date Vital 02/23/2021 Blood Pressure 1: 136/72 Code: 8480-6 Heart Rate 1: 79 bpm Respiratory Rate: 16 bpm SpO2: 97% Temperature: 36.4 (C) / 97.5 (F) We ight: 179 lbs Code: 36469-8 02/22/2021 Blood Pressure 1: 127/70 Code: 8480-6 Heart Rate 1: 51 bpm Respiratory Rate: 16 bpm SpO2: 99% Temperature: 36.6 (C) / 97.8 (F) We ight: 178 lbs Code: 76963-7 02/15/2021 Blood Pressure 1: 136/74 Code: 8480-6 Heart Rate 1: 72 bpm Temperature: .0 (C) / 32.0 (F) 02/14/2021 Blood Pressure 1: 136/81 Code: 8480-6 Heart Rate 1: 126 bpm Respiratory Rate: 16 bpm SpO2: 98% Temperature: 36.1 (C) / 97.0 (F) We ight: 178 lbs Code: 71590-9 01/31/2021 Blood Pressure 1: 132/80 Code: 8480-6 BMI: 35.0 Code: 96877-4 Heart Rate 1: 76 bpm Height: 5' Code: 8302-2 Respiratory Rate: 20 bpm SpO2: 96% Temperature: 36.6 (C) / 97.9 (F) Weight: 179 lbs Code: 94817-4 01/26/2021 Blood Pressure 1: 124/78 Code: 8480-6 Heart Rate 1: 94 bpm Respiratory Rate: 15 bpm SpO2: 97% Temperature: 36.4 (C) / 97.5 (F) We ight: 176 lbs Code: 56905-3 11/02/2020 Blood Pressure 1: 116/78 Code: 8480-6 BMI: 34.2 Code: 92430-6 Heart Rate 1: 84 bpm Height: 5' Code: 8302-2 Respiratory Rate: 20 bpm SpO2: 96% Temperature: 36.9 (C) / 98.4 (F) Weight: 175 lbs Code: 27285-2 09/28/2020 Blood Pressure 1: 131/77 Code: 8480-6 Heart Rate 1: 122 bpm Respiratory Rate: 17 bpm SpO2: 99% Temperature: 36.6 (C) / 97.9 (F) We ight: 180 lbs Code: 35968-0 08/09/2020 Blood Pressure 1: 126/68 Code: 8480-6 Heart Rate 1: 84 bpm Respiratory Rate: 20 bpm SpO2: 99% Temperature: 36.6 (C) / 97.9 (F) We ight: 177 lbs Code: 39577-5 01/13/2010 Blood Pressure 1: 130/70 Code: 8480-6 BMI: 36.7 Code: 62558-9 Heart Rate 1: 87 bpm Height: 5' Code: 8302-2 SpO2: 99% Temperature: 38. 8 (C) / 101.9 (F) Weight: 188 lbs Code: 42633-5 01/04/2010 Blood Pressure 1: 136/78 Code: 8480-6 BMI: 36.7 Code: 39267-5 Heart Rate 1: 84 bpm Height: 5' Code: 8302-2 Temperature: 38.0 (C) / 100.4 (F) We ight: 188 lbs Code: 40701-6 Functional Status No Functional Status data Reason For Visit Reason For Visit Effective Dates Notes edema 02/22/2021 follow up 02/14/2021 follow up 01/31/2021 swelling 01/26/2021 well woman exam (65+ years) 11/02/2020 Medicare [place] ual---no complaints follow up 09/28/2020 ~generic 08/09/2020 Re-establishing visi t rash 01/13/2010 arthropod bite 01/04/2010 Encounters Encounter Performer Location Codes Date ([id number]) OFFICE/OUTPATIENT VISIT EST Diagnosis: Cardiac arrhythmia, unspecified cardiac arrhythmia type[ICD10: I49.9] Diagnosis: Bilateral lower extremity edema[ICD10: R60.0] Diagnosis: Abnormal EKG[ICD10: R94.31] Rosalba Arteaga. Meli [facility] [employer] CPT-4: 09929 02/23/2021 ([id number]) OFFICE/OUTPATIENT VISIT EST Diagnosis: Cardiac arrhythmia, unspecified cardiac arrhythmia type[ICD10: I49.9] Diagnosis: Adverse effect of unspecified drugs, medicaments and biological substances, initial encounter[ICD10: T50.905A] Diagnosis: Bradycardia, drug induced[ICD10: R00.1] Diagnosis: Bilateral lower extremity edema[ICD10: R60.0] Rosalba [facility] [employer] CPT-4: 95858 02/22/2021 ([id number]) NURSE/OUTPATIENT VISIT EST Diagnosis: Sinus tachycardia[ICD10: R00.0] Triston [facility] [employer] CPT-4: 94290 02/15/2021 ([id number]) OFFICE/OUTPATIENT VISIT EST Diagnosis: Edema[ICD10: R60.9] Diagnosis: Sinus tachycardia[ICD10: R00.0] Triston [facility] CPT-4: 01426 02/14/2021 ([id number]) OFFICE/OUTPATIENT VISIT EST Diagnosis: Bilateral lower extremity edema[ICD10: R60.0] Triston [facility] CPT-4: 65696 01/31/2021 OFFICE/OUTPATIENT VISIT EST Diagnosis: Venous stasis dermatitis of both lower extremities[ICD10: I87.2] Diagnosis: Bilateral lower extremity edema[ICD10: R60.0] 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] Rosalba [facility] CPT-4: 62707 01/26/2021 ([id number]) OFFICE/OUTPATIENT VISIT EST Diagnosis: Tendonitis of left rotator cuff[ICD10: M75.82] Diagnosis: Decreased range of motion of left shoulder[ICD10: M25.612] Triston [facility] CPT-4: 99626 09/28/2020 ([id number]) OFFICE/OUTPATIENT VISIT NEW Diagnosis: Left shoulder pain[ICD10: M25.512] Diagnosis: Right hip pain[ICD10: M25.551] Diagnosis: Left arm weakness[ICD10: R29.898] Diagnosis: Right lower quadrant pain[ICD10: R10.31] Diagnosis: Fatigue[ICD10: R53.83] Triston [facility] CPT-4: 32947 08/09/2020 ([id number]) OFFICE/OUTPATIENT VISIT, EST [facility] CPT-4: 93893 01/13/2010 ([id number]) OFFICE/OUTPATIENT VISIT, EST [facility] CPT-4: 97503 01/04/2010 Plan of Care Planned Activity Notes [...] 02/23/2021 Appointment: Rosalba Angel WPtel: [phone] [facility] US FOLLOW UP 02/23/2021 Patient Education: Patient Medication Summary Completed 02/23/2021 Visit Plan: Will send to [facility] now for EKG d/t arrhythmia and bradycardia. Stop bystolic, come in tomorrow to recheck pulse. Continue lasix and K+ every other day. 02/22/2021 Visit NOS Plan: Plan Notes: Will send to [facility] now for EKG d... 02/22/2021 Appointment: Rosalba Angel WPtel: [phone] [facility] US FOLLOW UP 02/22/2021 Patient Education: Patient Medication Summary Completed 02/22/2021 Appointment: Triston Fernández WPtel: [phone] [facility] BP CHECK 02/15/2021 Visit Diagnosis Plan: Edema [...] : 427.89 ICD-10 : R00.0 02/14/2021 Appointment: Triston Fern[facility]dez [facility]el[facility] [phone] [facility] [place] [facility] 02/14/2021 Visit Diagnosis Plan: Bilateral lower extremity edema Discussion: Low Na diet--patient admits she eats out a lot Continue lasix and potassium Admits to sleeping in a recliner--discussed that bed is better for edema Check Chem 7 and fwup in 2weeks ICD-9 : 782.3 ICD-10 : R60.0 01/31/2021 Appointment: Triston Fernández WPtel: [phone] [place], [place] [id number] [place] FOLLOW UP 01/31/2021 Visit Plan: Will start lasix and K+ and f/u on Saturday or sooner for any concerns. Elevate legs. Increase water intake. Limit salt intake. 01/26/2021 Visit NOS Plan: Follow Up: 5 days Plan Notes: Will start lasix and K+ and f/... 01/26/2021 Appointment: Rosalba Angel [facility]Ptel[facility] [phone] [facility] ACUTE ILL[facility] 01/26/2021 Patient Education: Patient Medication Summary Completed 01/26/2021 Visit Diagnosis Plan: Encounter for [facility] adult medical examination without abnormal findings Discussion: [...] : 719.51 ICD-10 : M25.612 11/02/2020 Appointment: Triston Fernández WPtel: [phone] [facility] Annual Well Visit 11/02/2020 Visit Diagnosis Plan: Tendonitis of left rotator cuff Discussion: Injection as above followed by 5 days of prednisone and resume PT for ROM/strenthening and will fwup in 1month ICD-9 : 726.10 ICD-10 : M75.82 09/28/2020 Appointment: Triston Fernández WPtel: [facility] [place] FOLLOW UP 09/28/2020 Patient Education: prednisone- [employer] Coupon [id number] [email or web address] Completed 09/28/2020 Visit Diagnosis Plan: Right hip [...] : 789.03 ICD-10 : R10.31 08/09/2020 Appointment: Triston Fernández WPtel: [facility] RE-ESTABLISH 08/09/2020 Care Plan: X-RAY EXAM NECK SPINE 4/5VWS LOINC : 55885-7 Pending 08/09/2020 Care Plan: X-RAY EXAM OF SHOULDER LOINC : 35440-2 Pending 08/09/2020 Care Plan: X-RAY EXAM OF HIP LOINC : 247 62-7 Pending 08/09/2020 Care Plan: X-RAY EXAM L-S SPINE 2/3 VWS LOINC : 70182-7 Pending 08/09/2020 Visit Plan: Pt is instructed [...] -evaluated. 01/13/2010 Appointment: Chelly Hernandez WPtel: [phone] ACUTE ILLNESS 01/13/2010 Patient Education: Patient Medication [...] illness. 01/04/2010 Appointment: Chelly Hernandez WPtel: [phone] [place] [id number] ACUTE ILLNESS 01/04/2010 Patient Education: Patient Medication Summary Completed 01/04/2010 Instructions Comment . Stop bystolic d/t bradycardia. Start m etoprolol. Echo and 24 hour holter monitor ordered. Referral sent to cardiology- Dr. Monzon. Discussed EKG with patient and her daughter. Questions answered. F/U before appt with any concerns. Go to ED/call 911 for chest pain or other severe symptoms. . Will send to [facility] now for EKG d/t arrhy thmia [...]
--- OUTSIDE RECORDS SUMMARY | 2021-06-28 08:55 | XMS REPORT | CCD ---
Author Author Kimberley Fernández D.O. 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 Name Role Phone PP Unavailable CCM Unavailable Summary Purpose Interface Exchange Insurance Providers Payer name Policy type / Coverage type Covered republican ID Effective Begin Date Effective End Date WPS MEDIC[place] PART B [place] Part B [id number] Unknown [facility] Medicare Part B [id number] Un known Family history Father Diagnosis Age [...] chloride ER 20 mEq tablet,extended release RxNorm: 759182 Take 1 Tablet(s) Oral QOD 05/23/2021 06/21/2021 Active Lasix 20 mg tablet RxNorm: 913616 Take 1 Tablet(s) Oral QOD 05/23/2 021 06/21/2021 Active metoprolol succinate ER 25 mg tablet,extended release 24 hr RxNorm: 032803 Take 1 Tablet(s) Oral QD 05/23/2021 06/21/2021 Active potassium chloride ER 20 mEq tablet,extended release RxNorm: 494700 Take 1 Tablet(s) Oral QOD 04/24/2021 04/24/2021 Inactive metoprolol succinate ER 25 mg tablet,extended release 24 hr RxNorm: 710008 Take 1 Tablet(s) Oral QD 04/24/2021 04/24/2021 Inactive Lasix 20 mg tablet RxNorm: Take 1 Tablet(s) Oral QOD 021 04/24/2021 Inactive potassium chloride ER 20 mEq tablet,extended release RxNorm: 959947 Take 1 Tablet(s) Oral QOD 03/24/2021 03/24/2021 Inactive metoprolol succinate ER 25 mg tablet,extended release 24 hr RxNorm: 918267 Take 1 Tablet(s) Oral QD 03/24/2021 04/22/2021 Inactive Lasix 20 mg tablet RxNorm: Take 1 Tablet(s) Oral QOD 03/24/2021 Inactive metoprolol succinate ER 25 mg tablet,extended release 24 hr RxNorm: 706404 Take 1 Tablet(s) Oral QD 02/23/2021 02/23/2021 Inactive potassium chloride ER 20 mEq tablet,extended release RxNorm: 738575 1 Tablet(s) Oral QD 01/31/2021 03/02/2021 Inactive Lasix 20 mg tablet RxNorm: 1 Tablet(s) Oral QD 01/31/202102/21 Inactive Lasix 20 mg tablet RxNorm: 1 Tablet(s) Oral QD 01/26/202101/21 Inactive potassium chloride ER 20 mEq tablet,extended release RxNorm: 686376 1 Tablet(s) Oral QD 01/26/2021 01/30/2021 Inactive prednisone 20 mg tablet RxNorm: 417341 1 Tablet(s) Oral QD 09/28/19 21 10/03/2020 Inactive Prednisone 20 mg Tab RxNorm: 821223 1 Tablet(s) PO BID 01/13/2010 Inactive Cordran SP 0.05 % Topical Cream RxNorm: 666050 TOP BID 01/13/2010 01/19/2010 Inactive Septra DS 160 mg-800 mg Tab RxNorm: 132633 1 Tablet(s) PO BID 01/0401/13/2010 Inactive Mupirocin 2 % Ointment RxNorm: 887715 TOP TID Apply to affected lesion on lt. breast 2-3 times daily with dressing change. 01/04/2010 01/10/2010 [facility]ive Lotrimin 1 % Topical Cream RxNorm: 194174 TOP BID 01/04/201001/17 Inactive Medication Administered No Medication Administered data Immunizations No Immunization data Results Observation Observation Code Item Item Code Result Date S ervice Location COMPREHENSIVE METABOLIC 00649 AST 19 U/L 2020 Unknown COMPREHENSIVE METABOLIC 94259 ALT 15 U/L 2020 Unknown COMPREHENSIVE METABOLIC 02351 BUN 25 mg/dL 2020 Unknown COMPREHENSIVE METABOLIC 77817 ALBUMIN 4.0 g/dL 2020 Unknown COMPREHENSIVE METABOLIC 43427 CHLORIDE 107 mmol/L 02/14 Unknown COMPREHENSIVE METABOLIC 14719 Bili Total 0.5 mg/dL 02/14 Unknown COMPREHENSIVE METABOLIC 98251 ALK PHOS 88 U/L 2020 Unknown COMPREHENSIVE METABOLIC 62456 SODIUM 141 mmol/L 02/14 Unknown COMPREHENSIVE METABOLIC 76285 CREATININE 1.00 mg/dL 01/22 Unknown COMPREHENSIVE METABOLIC 17097 CALCIUM 9.9 mg/dL 2020 Unknown COMPREHENSIVE METABOLIC 48205 POTASSIUM 4.3 mmol/L 02/14 Unknown COMPREHENSIVE METABOLIC 98413 Total Protein 7.3 g/dL Unknown COMPREHENSIVE METABOLIC 61494 Glucose 101 mg/dL 2020 Unknown COMPREHENSIVE METABOLIC 31226 Bicarbonate 26 mmol/L 01/22 Unknown COMPREHENSIVE METABOLIC 89146 AGAP 8 mmol/L 2020 Unknown GFR CALC 1471596 GFR Non Afr Amr 53 mL/min 02/14/2021 Unk nown GFR CALC [id number] GFR Afr Amr >60 mL/min 02/14/2021 Unknow n COMPREHENSIVE METABOLIC 19045 AST 18 U/L 2019 Unknown COMPREHENSIVE METABOLIC 73633 ALT 12 U/L 2019 Unknown COMPREHENSIVE METABOLIC 73375 BUN 19 mg/dL 2019 Unknown COMPREHENSIVE METABOLIC 98578 ALBUMIN 4.3 g/dL 2019 Unknown COMPREHENSIVE METABOLIC 71005 CHLORIDE 107 mmol/L 08/09 Unknown COMPREHENSIVE METABOLIC 17471 Bili Total 0.7 mg/dL 08/09 Unknown COMPREHENSIVE METABOLIC 29412 ALK PHOS 77 U/L 2019 Unknown COMPREHENSIVE METABOLIC 03203 SODIUM 143 mmol/L 08/09 Unknown COMPREHENSIVE METABOLIC 48996 CREATININE 0.78 mg/dL 07/24 Unknown COMPREHENSIVE METABOLIC 59602 CALCIUM 9.8 mg/dL 2019 Unknown COMPREHENSIVE METABOLIC 22920 POTASSIUM 4.2 mmol/L 08/09 Unknown COMPREHENSIVE METABOLIC 98142 Total Protein 7.4 g/dL Unknown COMPREHENSIVE METABOLIC 96135 Glucose 96 mg/dL 2019 Unknown COMPREHENSIVE METABOLIC 14233 Bicarbonate 23 mmol/L 07/24 Unknown COMPREHENSIVE METABOLIC 96414 AGAP 13 mmol/L 2019 Unknown THYROID STIMULATING HORMONE 18950 TSH 0.912 uIU/mL 08/09/2020 Unknown GFR CALC 8023929 GFR Non Afr Amr >60 mL/min 08/09/2020 Un known GFR CALC 7461703 GFR Afr Amr >60 mL/min 08/09/2020 Unknow n COMPLETE BLOOD COUNT [id number] WBC 6.8 10e9/L 08/09/20 20 Unknown COMPLETE BLOOD COUNT [id number] RBC 4.13 10e12/L 2019 Unknown COMPLETE BLOOD COUNT 3968143 HEMOGLOBIN 12.9 g/dL 08/09/20 20 Unknown COMPLETE BLOOD COUNT 1775177 HEMATOCRIT 40.8 % 08/09/20 20 Unknown COMPLETE BLOOD COUNT 0248084 MCV 98.8 fL 0 Unknown COMPLETE BLOOD COUNT 0978016 MCH 31.2 pg 0 Unknown COMPLETE BLOOD COUNT 5846693 MCHC 31.6 g/dL 0 Unknown COMPLETE BLOOD COUNT 9790949 PLATELET COUNT 237 10e9/L Unknown COMPLETE BLOOD COUNT 0991230 Mean Plt Volume 10.8 fL Unknown COMPLETE BLOOD COUNT 7947641 Neut Auto 64.7 % 0 Unknown COMPLETE BLOOD COUNT 0034482 Lymph Auto 24.7 % 08/09/20 20 Unknown COMPLETE BLOOD COUNT [id number] [place] Auto 9.3 % 0 Unknown COMPLETE BLOOD COUNT 7137693 RDW 14.9 % 0 Unknown COMPLETE BLOOD COUNT 4793668 Eos Auto 1.2 % 0 Unknown COMPLETE BLOOD COUNT 8072006 Baso Auto 0.1 % 0 Unknown COMPLETE BLOOD COUNT [id number] Neutrophil Abs 4.40 10e9/L Unknown COMPLETE BLOOD COUNT 4856516 Lymphocyte Abs 1.68 10e9/L Unknown COMPLETE BLOOD COUNT 9311376 Monocyte Abs 0.63 10e9/L 07/24 Unknown COMPLETE BLOOD COUNT 3238536 Eosinophil Abs 0.08 10e9/L Unknown COMPLETE BLOOD COUNT 2360625 RDW-SD 52.7 fL 0 Unknown COMPLETE BLOOD COUNT [id number] Basophil Abs 0.01 10e9/L 07/24 Unknown Procedures Procedure Codes Date COMPREHEN METABOLIC PANEL CPT-4: 19854 02/14/2021 ROUTINE VENIPUNCTURE CPT-4: 60698 02/14/2021 PPPS, subseq visit CPT-4: G0439 11/02/2020 DRAIN/INJECT JOINT/BURSA CPT-4: 32560 09/28/2020 TRIAMCINOLONE ACET INJ NOS CPT-4: J3301 09/28/2020 DEXAMETHASONE SODIUM PHOS CPT-4: J1100 09/28/2020 ROUTINE VENIPUNCTURE CPT-4: 89771 08/09/2020 COMPREHEN METABOLIC PANEL CPT-4: 24306 08/09/2020 COMPLETE CBC W/AUTO DIFF WBC CPT-4: 93876 08/09/2020 ASSAY THYROID STIM HORMONE CPT-4: 94867 08/09/2020 THER/PROPH/DIAG INJ SC/IM CPT-4: 68906 01/04/2010 CEFTRIAXONE SODIUM INJECTION CPT-4: J0696 01/04/2010 DRAINAGE OF SKIN ABSCESS CPT-4: 53124 01/04/2010 Vital Signs Date Vital 02/23/2021 Blood Pressure 1: 136/72 Code: 8480-6 Heart Rate 1: 79 bpm Respiratory Rate: 16 bpm SpO2: 97% Temperature: 36.4 (C) / 97.5 (F) We ight: 179 lbs Code: 08429-0 02/22/2021 Blood Pressure 1: 127/70 Code: 8480-6 Heart Rate 1: 51 bpm Respiratory Rate: 16 bpm SpO2: 99% Temperature: 36.6 (C) / 97.8 (F) We ight: 178 lbs Code: 06866-9 02/15/2021 Blood Pressure 1: 136/74 Code: 8480-6 Heart Rate 1: 72 bpm Temperature: .0 (C) / 32.0 (F) 02/14/2021 Blood Pressure 1: 136/81 Code: 8480-6 Heart Rate 1: 126 bpm Respiratory Rate: 16 bpm SpO2: 98% Temperature: 36.1 (C) / 97.0 (F) We ight: 178 lbs Code: 19176-3 01/31/2021 Blood Pressure 1: 132/80 Code: 8480-6 BMI: 35.0 Code: 08963-5 Heart Rate 1: 76 bpm Height: 5' Code: 8302-2 Respiratory Rate: 20 bpm SpO2: 96% Temperature: 36.6 (C) / 97.9 (F) Weight: 179 lbs Code: 77412-7 01/26/2021 Blood Pressure 1: 124/78 Code: 8480-6 Heart Rate 1: 94 bpm Respiratory Rate: 15 bpm SpO2: 97% Temperature: 36.4 (C) / 97.5 (F) We ight: 176 lbs Code: 27164-7 11/02/2020 Blood Pressure 1: 116/78 Code: 8480-6 BMI: 34.2 Code: 98017-7 Heart Rate 1: 84 bpm Height: 5' Code: 8302-2 Respiratory Rate: 20 bpm SpO2: 96% Temperature: 36.9 (C) / 98.4 (F) Weight: 175 lbs Code: 26186-3 09/28/2020 Blood Pressure 1: 131/77 Code: 8480-6 Heart Rate 1: 122 bpm Respiratory Rate: 17 bpm SpO2: 99% Temperature: 36.6 (C) / 97.9 (F) We ight: 180 lbs Code: 62625-9 08/09/2020 Blood Pressure 1: 126/68 Code: 8480-6 Heart Rate 1: 84 bpm Respiratory Rate: 20 bpm SpO2: 99% Temperature: 36.6 (C) / 97.9 (F) We ight: 177 lbs Code: 15795-5 01/13/2010 Blood Pressure 1: 130/70 Code: 8480-6 BMI: 36.7 Code: 17076-7 Heart Rate 1: 87 bpm Height: 5' Code: 8302-2 SpO2: 99% Temperature: 38. 8 (C) / 101.9 (F) Weight: 188 lbs Code: 45189-0 01/04/2010 Blood Pressure 1: 136/78 Code: 8480-6 BMI: 36.7 Code: 63678-4 Heart Rate 1: 84 bpm Height: 5' Code: 8302-2 Temperature: 38.0 (C) / 100.4 (F) We ight: 188 lbs Code: 40915-7 Functional Status No Functional Status data Reason For Visit Reason For Visit Effective Dates Notes edema 02/22/2021 follow up 02/14/2021 follow up 01/31/2021 swelling 01/26/2021 well woman exam (65+ years) 11/02/2020 Medicare Ann ual---no complaints follow up 09/28/2020 ~generic 08/09/2020 Re-establishing visi t rash 01/13/2010 arthropod bite 01/04/2010 Encounters Encounter Performer Location Codes Date ([id number]) OFFICE/OUTPATIENT VISIT EST Diagnosis: Cardiac arrhythmia, unspecified cardiac arrhythmia type[ICD10: I49.9] Diagnosis: Bilateral lower extremity edema[ICD10: R60.0] Diagnosis: Abnormal EKG[ICD10: R94.31] Rosalba GOLDSTEIN S. Meli CHILD [employer] CPT-4: 53155 02/23/2021 ([id number]) OFFICE/OUTPATIENT VISIT EST Diagnosis: Cardiac arrhythmia, unspecified cardiac arrhythmia type[ICD10: I49.9] Diagnosis: Adverse effect of unspecified drugs, medicaments and biological substances, initial encounter[ICD10: T50.905A] Diagnosis: Bradycardia, drug induced[ICD10: R00.1] Diagnosis: Bilateral lower extremity edema[ICD10: R60.0] Rosalba FERNÁNDEZ [employer] CPT-4: 30880 02/22/2021 ([id number]) NURSE/OUTPATIENT VISIT EST Diagnosis: Sinus tachycardia[ICD10: R00.0] Stacia FERNÁNDEZ [employer] CPT-4: 54869 02/15/2021 ([id number]) OFFICE/OUTPATIENT VISIT EST Diagnosis: Edema[ICD10: R60.9] Diagnosis: Sinus tachycardia[ICD10: R00.0] Stacia [facility] CPT-4: 04505 02/14/2021 ([id number]) OFFICE/OUTPATIENT VISIT EST Diagnosis: Bilateral lower extremity edema[ICD10: R60.0] Stacia [facility] CPT-4: 90031 01/31/2021 OFFICE/OUTPATIENT VISIT EST Diagnosis: Venous stasis dermatitis of both lower extremities[ICD10: I87.2] Diagnosis: Bilateral lower extremity edema[ICD10: R60.0] 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] Rosalba Vegaselwyn KEEGAN [facility] CPT-4: 59916 01/26/2021 ([id number]) OFFICE/OUTPATIENT VISIT EST Diagnosis: Tendonitis of left rotator cuff[ICD10: M75.82] Diagnosis: Decreased range of motion of left shoulder[ICD10: M25.612] Stacia [facility] CPT-4: 64730 09/28/2020 ([id number]) OFFICE/OUTPATIENT VISIT NEW Diagnosis: Left shoulder pain[ICD10: M25.512] Diagnosis: Right hip pain[ICD10: M25.551] Diagnosis: Left arm weakness[ICD10: R29.898] Diagnosis: Right lower quadrant pain[ICD10: R10.31] Diagnosis: Fatigue[ICD10: R53.83] Stacialeonel ALLISONQUELINE ChandlerClover DARIUSZ Swartz DO [employer] CPT-4: 33035 08/09/2020 ([id number]) OFFICE/OUTPATIENT VISIT, EST Stacia Allanleliagiovana [facility] CPT-4: 19752 01/13/2010 ([id number]) OFFICE/OUTPATIENT VISIT, EST Stacia Lemusleliagiovana [facility] CPT-4: 39833 01/04/2010 Plan of Care Planned Activity Notes [...] 02/23/2021 Appointment: Rosalba Angel WPtel: [phone] [facility] US FOLLOW UP 02/23/2021 Patient Education: Patient Medication Summary Completed 02/23/2021 Visit Plan: Will send to AV now for EKG d/t arrhythmia and bradycardia. Stop bystolic, come in tomorrow to recheck pulse. Continue lasix and K+ every other day. 02/22/2021 Visit NOS Plan: Plan Notes: Will send to [facility] now for EKG d... 02/22/2021 Appointment: Rosalba Angel WPtel: [phone] [facility] US FOLLOW UP 02/22/2021 Patient Education: Patient Medication Summary Completed 02/22/2021 Appointment: Stacia Fernández WPtel: [phone] [facility] US BP CHECK 02/15/2021 Visit Diagnosis Plan: Edema [...] 427.89 ICD-10 : R00.0 02/14/2021 Appointment: Stacia Fernánedz WPtel: [phone] [facility] FOLLOW UP 02/14/2021 Visit Diagnosis Plan: Bilateral lower extremity edema Discussion: Low Na diet--patient admits she eats out a lot Continue lasix and potassium Admits to sleeping in a recliner--discussed that bed is better for edema Check Chem 7 and fwup in 2weeks ICD-9 : 782.3 ICD-10 : R60.0 01/31/2021 Appointment: Stacia Fernández WPtel: [address] [place] [address] FOLLOW UP 01/31/2021 Visit Plan: Will start lasix and K+ and f/u on Saturday or sooner for any concerns. Elevate legs. Increase water intake. Limit salt intake. 01/26/2021 Visit NOS Plan: Follow Up: 5 days Plan Notes: Will start lasix and K+ and f/... 01/26/2021 Appointment: Rosalba Angel WPtel: [phone] [facility] ACUTE ILLNESS 01/26/2021 Patient Education: Patient Medication Summary Completed 01/26/2021 Visit Diagnosis Plan: Encounter for [facility] adult medical examination without abnormal findings [...] : M25.612 11/02/2020 Appointment: Stacia Fernández WPtel: [phone] [facility] Annual Well Visit 11/02/2020 Visit Diagnosis Plan: Tendonitis of left rotator cuff Discussion: Injection as above followed by 5 days of prednisone and resume PT for ROM/strenthening and will fwup in 1month ICD-9 : 726.10 ICD-10 : M75.82 09/28/2020 Appointment: St[facility]dez [facility] [phone] [facility] [facility] 09/28/2020 Patient Education: prednisone- [employer] Coupon [id number] [email or web address] Completed 09/28/2020 Visit Diagnosis Plan: Right hip [...] : R10.31 08/09/2020 Appointment: Stacia Fernández WPtel[facility] [facility] 08/09/2020 Care Plan: X-RAY EXAM NECK SPINE 4/5VWS LOINC : 97550-9 Pending 08/09/2020 Care Plan: X-RAY EXAM OF SHOULDER LOINC : 33354-1 Pending 08/09/2020 Care Plan: X-RAY EXAM OF HIP LOINC : 247 62-7 Pending 08/09/2020 Care Plan: X-RAY EXAM L-S SPINE 2/3 VWS LOINC : 27001-1 Pending 08/09/2020 Visit Plan: Pt is instructed [...] -evaluated. 01/13/2010 Appointment: Chelly Hernandez WPtel: [phone] [place] [id number] ACUTE ILLNESS 01/13/2010 Patient Education: Patient Medication [...] illness. 01/04/2010 Appointment: Chelly Hernandez WPtel: [phone] [facility] ACUTE ILLNESS 01/04/2010 Patient Education: Patient Medication Summary Completed 01/04/2010 Instructions Comment . Stop bystolic d/t bradycardia. Start m etoprolol. Echo and 24 hour holter monitor ordered. Referral sent to cardiology- Dr. Monzon. Discussed EKG with patient and her daughter. Questions answered. F/U before appt with any concerns. Go to ED/call 911 for chest pain or other severe symptoms. . Will send to [facility] now for EKG d/t arrhy thmia [...]
--- OUTSIDE RECORDS SUMMARY | 2021-06-28 08:55 | XMS REPORT | CCD ---
Author Author Kimberley Fernández D.O. 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 Name Role Phone PP Unavailable CCM Unavailable Summary Purpose Interface Exchange Insurance Providers Payer name Policy type / Coverage type Covered democrat ID Effective Begin Date Effective End Date WPS MEDIC[place] Medicare Part B [id number] Unknown [facility] Medicare Part B [id number] Un known Family history Father Diagnosis Age [...] chloride ER 20 mEq tablet,extended release RxNorm: 098881 Take 1 Tablet(s) Oral QOD 05/23/2021 06/21/2021 Active metoprolol succinate ER 25 mg tablet,extended release 24 hr RxNorm: 817975 Take 1 Tablet(s) Oral QD 04/24/2021 05/23/2021 Inactive Lasix 20 mg tablet RxNorm: Take 1 Tablet(s) Oral QOD 021 05/23/2021 Inactive potassium chloride ER 20 mEq tablet,extended release RxNorm: 698965 Take 1 Tablet(s) Oral QOD 04/24/2021 04/24/2021 Inactive potassium chloride ER 20 mEq tablet,extended release RxNorm: 221595 Take 1 Tablet(s) Oral QOD 03/24/2021 03/24/2021 Inactive metoprolol succinate ER 25 mg tablet,extended release 24 hr RxNorm: 784094 Take 1 Tablet(s) Oral QD 03/24/2021 04/22/2021 Inactive Lasix 20 mg tablet RxNorm: Take 1 Tablet(s) Oral QOD 021 03/24/2021 Inactive metoprolol succinate ER 25 mg tablet,extended release 24 hr RxNorm: 879475 Take 1 Tablet(s) Oral QD 02/23/2021 02/23/2021 Inactive potassium chloride ER 20 mEq tablet,extended release RxNorm: 448479 1 Tablet(s) Oral QD 01/31/2021 03/02/2021 Inactive Lasix 20 mg tablet RxNorm: 1 Tablet(s) Oral QD 01/31/202102/21 Inactive Lasix 20 mg tablet RxNorm: 1 Tablet(s) Oral QD 01/26/202101/21 Inactive potassium chloride ER 20 mEq tablet,extended release RxNorm: 841100 1 Tablet(s) Oral QD 01/26/2021 01/30/2021 Inactive prednisone 20 mg tablet RxNorm: 114731 1 Tablet(s) Oral QD 09/28/19 21 10/03/2020 Inactive Prednisone 20 mg Tab RxNorm: 772746 1 Tablet(s) PO BID 01/13/2010 Inactive Cordran SP 0.05 % Topical Cream RxNorm: 861033 TOP BID 01/13/2010 01/19/2010 Inactive Septra DS 160 mg-800 mg Tab RxNorm: 505699 1 Tablet(s) PO BID 01/0401/13/2010 Inactive Mupirocin 2 % Ointment RxNorm: 640108 TOP TID Apply to affected lesion on lt. breast 2-3 times daily with dressing change. 01/04/2010 01/10/2010 [place] ctive Lotrimin 1 % Topical Cream RxNorm: 637341 TOP BID 01/04/201001/17 Inactive Medication Administered No Medication Administered data Immunizations No Immunization data Results Observation Observation Code Item Item Code Result Date S ervice Location COMPREHENSIVE METABOLIC 98235 AST 19 U/L 2020 Unknown COMPREHENSIVE METABOLIC 46661 ALT 15 U/L 2020 Unknown COMPREHENSIVE METABOLIC 47931 BUN 25 mg/dL 2020 Unknown COMPREHENSIVE METABOLIC 08676 ALBUMIN 4.0 g/dL 2020 Unknown COMPREHENSIVE METABOLIC 40731 CHLORIDE 107 mmol/L 02/14 Unknown COMPREHENSIVE METABOLIC 91484 Bili Total 0.5 mg/dL 02/14 Unknown COMPREHENSIVE METABOLIC 44734 ALK PHOS 88 U/L 2020 Unknown COMPREHENSIVE METABOLIC 74974 SODIUM 141 mmol/L 02/14 Unknown COMPREHENSIVE METABOLIC 53986 CREATININE 1.00 mg/dL 01/22 Unknown COMPREHENSIVE METABOLIC 37262 CALCIUM 9.9 mg/dL 2020 Unknown COMPREHENSIVE METABOLIC 97250 POTASSIUM 4.3 mmol/L 02/14 Unknown COMPREHENSIVE METABOLIC 76000 Total Protein 7.3 g/dL Unknown COMPREHENSIVE METABOLIC 57468 Glucose 101 mg/dL 2020 Unknown COMPREHENSIVE METABOLIC 23970 Bicarbonate 26 mmol/L 01/22 Unknown COMPREHENSIVE METABOLIC 76154 AGAP 8 mmol/L 2020 Unknown GFR CALC [id number] GFR Non Afr Amr 53 mL/min 02/14/2021 Unk nown GFR CALC [id number] GFR Afr Amr >60 mL/min 02/14/2021 Unknow n COMPREHENSIVE METABOLIC 57008 AST 18 U/L 2019 Unknown COMPREHENSIVE METABOLIC 07565 ALT 12 U/L 2019 Unknown COMPREHENSIVE METABOLIC 52340 BUN 19 mg/dL 2019 Unknown COMPREHENSIVE METABOLIC 71766 ALBUMIN 4.3 g/dL 2019 Unknown COMPREHENSIVE METABOLIC 97713 CHLORIDE 107 mmol/L 08/09 Unknown COMPREHENSIVE METABOLIC 47098 Bili Total 0.7 mg/dL 08/09 Unknown COMPREHENSIVE METABOLIC 07101 ALK PHOS 77 U/L 2019 Unknown COMPREHENSIVE METABOLIC 27511 SODIUM 143 mmol/L 08/09 Unknown COMPREHENSIVE METABOLIC 91409 CREATININE 0.78 mg/dL 07/24 Unknown COMPREHENSIVE METABOLIC 62140 CALCIUM 9.8 mg/dL 2019 Unknown COMPREHENSIVE METABOLIC 37108 POTASSIUM 4.2 mmol/L 08/09 Unknown COMPREHENSIVE METABOLIC 97387 Total Protein 7.4 g/dL Unknown COMPREHENSIVE METABOLIC 54049 Glucose 96 mg/dL 2019 Unknown COMPREHENSIVE METABOLIC 85116 Bicarbonate 23 mmol/L 07/24 Unknown COMPREHENSIVE METABOLIC 33549 AGAP 13 mmol/L 2019 Unknown THYROID STIMULATING HORMONE 37964 TSH 0.912 uIU/mL 08/09/2020 Unknown GFR CALC 4310536 GFR Afr Amr >60 mL/min 08/09/2020 Unknow n GFR CALC [id number] GFR Non Afr Amr >60 mL/min 08/09/2020 Un known COMPLETE BLOOD COUNT [id number] WBC 6.8 10e9/L 08/09/20 20 Unknown COMPLETE BLOOD COUNT [id number] RBC 4.13 10e12/L 2019 Unknown COMPLETE BLOOD COUNT [id number] HEMOGLOBIN 12.9 g/dL 08/09/20 20 Unknown COMPLETE BLOOD COUNT 9777940 HEMATOCRIT 40.8 % 08/09/20 20 Unknown COMPLETE BLOOD COUNT 9692422 MCV 98.8 fL 0 Unknown COMPLETE BLOOD COUNT [id number] MCH 31.2 pg 0 Unknown COMPLETE BLOOD COUNT 6606505 MCHC 31.6 g/dL 0 Unknown COMPLETE BLOOD COUNT 6006414 PLATELET COUNT 237 10e9/L Unknown COMPLETE BLOOD COUNT 7772482 Mean Plt Volume 10.8 fL Unknown COMPLETE BLOOD COUNT 9960211 Neut Auto 64.7 % 0 Unknown COMPLETE BLOOD COUNT 3891785 Lymph Auto 24.7 % 08/09/20 20 Unknown COMPLETE BLOOD COUNT 5310117 [place] Auto 9.3 % 0 Unknown COMPLETE BLOOD COUNT 5702890 Eos Auto 1.2 % 0 Unknown COMPLETE BLOOD COUNT 4133960 RDW 14.9 % 0 Unknown COMPLETE BLOOD COUNT 3792287 Baso Auto 0.1 % 0 Unknown COMPLETE BLOOD COUNT 8725193 Neutrophil Abs 4.40 10e9/L Unknown COMPLETE BLOOD COUNT [id number] Lymphocyte Abs 1.68 10e9/L Unknown COMPLETE BLOOD COUNT 2085738 Monocyte Abs 0.63 10e9/L 07/24 Unknown COMPLETE BLOOD COUNT 4510116 Eosinophil Abs 0.08 10e9/L Unknown COMPLETE BLOOD COUNT [id number] RDW-SD 52.7 fL 0 Unknown COMPLETE BLOOD COUNT [id number] Basophil Abs 0.01 10e9/L 07/24 Unknown Procedures Procedure Codes Date COMPREHEN METABOLIC PANEL CPT-4: 01613 02/14/2021 ROUTINE VENIPUNCTURE CPT-4: 05902 02/14/2021 PPPS, subseq visit CPT-4: G0439 11/02/2020 DRAIN/INJECT JOINT/BURSA CPT-4: 74778 09/28/2020 TRIAMCINOLONE ACET INJ NOS CPT-4: J3301 09/28/2020 DEXAMETHASONE SODIUM PHOS CPT-4: J1100 09/28/2020 ROUTINE VENIPUNCTURE CPT-4: 71419 08/09/2020 COMPREHEN METABOLIC PANEL CPT-4: 89495 08/09/2020 COMPLETE CBC W/AUTO DIFF WBC CPT-4: 18230 08/09/2020 ASSAY THYROID STIM HORMONE CPT-4: 19494 08/09/2020 THER/PROPH/DIAG INJ SC/IM CPT-4: 66328 01/04/2010 CEFTRIAXONE SODIUM INJECTION CPT-4: J0696 01/04/2010 DRAINAGE OF SKIN ABSCESS CPT-4: 95949 01/04/2010 Vital Signs Date Vital 02/23/2021 Blood Pressure 1: 136/72 Code: 8480-6 Heart Rate 1: 79 bpm Respiratory Rate: 16 bpm SpO2: 97% Temperature: 36.4 (C) / 97.5 (F) We ight: 179 lbs Code: 22480-9 02/22/2021 Blood Pressure 1: 127/70 Code: 8480-6 Heart Rate 1: 51 bpm Respiratory Rate: 16 bpm SpO2: 99% Temperature: 36.6 (C) / 97.8 (F) We ight: 178 lbs Code: 59016-3 02/15/2021 Blood Pressure 1: 136/74 Code: 8480-6 Heart Rate 1: 72 bpm Temperature: .0 (C) / 32.0 (F) 02/14/2021 Blood Pressure 1: 136/81 Code: 8480-6 Heart Rate 1: 126 bpm Respiratory Rate: 16 bpm SpO2: 98% Temperature: 36.1 (C) / 97.0 (F) We ight: 178 lbs Code: 32454-0 01/31/2021 Blood Pressure 1: 132/80 Code: 8480-6 BMI: 35.0 Code: 24806-9 Heart Rate 1: 76 bpm Height: 5' Code: 8302-2 Respiratory Rate: 20 bpm SpO2: 96% Temperature: 36.6 (C) / 97.9 (F) Weight: 179 lbs Code: 45668-4 01/26/2021 Blood Pressure 1: 124/78 Code: 8480-6 Heart Rate 1: 94 bpm Respiratory Rate: 15 bpm SpO2: 97% Temperature: 36.4 (C) / 97.5 (F) We ight: 176 lbs Code: 35919-6 11/02/2020 Blood Pressure 1: 116/78 Code: 8480-6 BMI: 34.2 Code: 59537-7 Heart Rate 1: 84 bpm Height: 5' Code: 8302-2 Respiratory Rate: 20 bpm SpO2: 96% Temperature: 36.9 (C) / 98.4 (F) Weight: 175 lbs Code: 52447-2 09/28/2020 Blood Pressure 1: 131/77 Code: 8480-6 Heart Rate 1: 122 bpm Respiratory Rate: 17 bpm SpO2: 99% Temperature: 36.6 (C) / 97.9 (F) We ight: 180 lbs Code: 79657-2 08/09/2020 Blood Pressure 1: 126/68 Code: 8480-6 Heart Rate 1: 84 bpm Respiratory Rate: 20 bpm SpO2: 99% Temperature: 36.6 (C) / 97.9 (F) We ight: 177 lbs Code: 26624-1 01/13/2010 Blood Pressure 1: 130/70 Code: 8480-6 BMI: 36.7 Code: 88898-7 Heart Rate 1: 87 bpm Height: 5' Code: 8302-2 SpO2: 99% Temperature: 38. 8 (C) / 101.9 (F) Weight: 188 lbs Code: 00532-2 01/04/2010 Blood Pressure 1: 136/78 Code: 8480-6 BMI: 36.7 Code: 26248-3 Heart Rate 1: 84 bpm Height: 5' Code: 8302-2 Temperature: 38.0 (C) / 100.4 (F) We ight: 188 lbs Code: 47317-6 Functional Status No Functional Status data Reason For Visit Reason For Visit Effective Dates Notes edema 02/22/2021 follow up 02/14/2021 follow up 01/31/2021 swelling 01/26/2021 well woman exam (65+ years) 11/02/2020 Medicare [facility]---no complaints follow up 09/28/2020 ~generic 08/09/2020 Re-establishing visi t rash 01/13/2010 arthropod bite 01/04/2010 Encounters Encounter Performer Location Codes Date ([id number]) OFFICE/OUTPATIENT VISIT EST Diagnosis: Cardiac arrhythmia, unspecified cardiac arrhythmia type[ICD10: I49.9] Diagnosis: Bilateral lower extremity edema[ICD10: R60.0] Diagnosis: Abnormal EKG[ICD10: R94.31] Rosalba GOLDSTEIN S. Meli CHILD [employer] CPT-4: 22281 02/23/2021 ([id number]) OFFICE/OUTPATIENT VISIT EST Diagnosis: Cardiac arrhythmia, unspecified cardiac arrhythmia type[ICD10: I49.9] Diagnosis: Adverse effect of unspecified drugs, medicaments and biological substances, initial encounter[ICD10: T50.905A] Diagnosis: Bradycardia, drug induced[ICD10: R00.1] Diagnosis: Bilateral lower extremity edema[ICD10: R60.0] Rosalba FERNÁNDEZ [employer] CPT-4: 14561 02/22/2021 ([id number]) NURSE/OUTPATIENT VISIT EST Diagnosis: Sinus tachycardia[ICD10: R00.0] Triston [facility] [employer] CPT-4: 13322 02/15/2021 ([id number]) OFFICE/OUTPATIENT VISIT EST Diagnosis: Edema[ICD10: R60.9] Diagnosis: Sinus tachycardia[ICD10: R00.0] Triston [facility] [employer] CPT-4: 90151 02/14/2021 ([id number]) OFFICE/OUTPATIENT VISIT EST Diagnosis: Bilateral lower extremity edema[ICD10: R60.0] [facility] CPT-4: 72086 01/31/2021 OFFICE/OUTPATIENT VISIT EST Diagnosis: Venous stasis dermatitis of both lower extremities[ICD10: I87.2] Diagnosis: Bilateral lower extremity edema[ICD10: R60.0] 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] Rosalba [facility] CPT-4: 53088 01/26/2021 ([id number]) OFFICE/OUTPATIENT VISIT EST Diagnosis: Tendonitis of left rotator cuff[ICD10: M75.82] Diagnosis: Decreased range of motion of left shoulder[ICD10: M25.612] [facility] CPT-4: 48740 09/28/2020 ([id number]) OFFICE/OUTPATIENT VISIT NEW Diagnosis: Left shoulder pain[ICD10: M25.512] Diagnosis: Right hip pain[ICD10: M25.551] Diagnosis: Left arm weakness[ICD10: R29.898] Diagnosis: Right lower quadrant pain[ICD10: R10.31] Diagnosis: Fatigue[ICD10: R53.83] Triston [facility] CPT-4: 98005 08/09/2020 ([id number]) OFFICE/OUTPATIENT VISIT, EST [facility] CPT-4: 94903 01/13/2010 ([id number]) OFFICE/OUTPATIENT VISIT, EST [facility] CPT-4: 91488 01/04/2010 Plan of Care Planned Activity Notes [...] 02/23/2021 Appointment: Rosalba Angel WPtel: [phone] [facility] US FOLLOW UP 02/23/2021 Patient Education: Patient Medication Summary Completed 02/23/2021 Visit Plan: Will send to AV now for EKG d/t arrhythmia and bradycardia. Stop bystolic, come in tomorrow to recheck pulse. Continue lasix and K+ every other day. 02/22/2021 Visit NOS Plan: Plan Notes: Will send to AV now for EKG d... 02/22/2021 Appointment: Rosalba Angel WPtel: [phone] [facility] US FOLLOW UP 02/22/2021 Patient Education: Patient Medication Summary Completed 02/22/2021 Appointment: Triston Fernández WPtel: [address] [place], [place] [id number] US BP CHECK 02/15/2021 Visit Diagnosis Plan: [...] R00.0 02/14/2021 Appointment: Triston Fernández WPtel: [phone] [facility] US FOLLOW UP 02/14/2021 Visit Diagnosis Plan: Bilateral lower extremity edema Discussion: Low Na diet--patient admits she eats out a lot Continue lasix and potassium Admits to sleeping in a recliner--discussed that bed is better for edema Check Chem 7 and fwup in 2weeks ICD-9 : 782.3 ICD-10 : R60.0 01/31/2021 [facility]ment: [facility]iston [facility] [phone] [facility] [facility] 01/31/2021 Visit Plan: Will start lasix and K+ and f/u on Saturday or sooner for any concerns. Elevate legs. Increase water intake. Limit salt intake. 01/26/2021 Visit NOS Plan: Follow Up: 5 days Plan Notes: Will start lasix and K+ and f/... 01/26/2021 [facility]ment: [facility] [phone] [facility] [facility] 01/26/2021 Patient Education: Patient Medication Summary Completed 01/26/2021 Visit Diagnosis Plan: Encounter for [facility] adult medical examination without abnormal findings [...] M25.612 11/02/2020 Appointment: Triston Fern[facility]dez [facility] [phone] [facility] [facility] Visit 11/02/2020 Visit Diagnosis Plan: Tendonitis of left rotator cuff Discussion: Injection as above followed by 5 days of prednisone and resume PT for ROM/strenthening and will fwup in 1month ICD-9 : 726.10 ICD-10 : M75.82 09/28/2020 Appointment: Triston Fern[facility]dez [facility] [phone] [facility] FO[facility] 09/28/2020 Patient Education: prednisone- [employer] Coupon [id number] [email or web address] Completed 09/28/2020 Visit Diagnosis Plan: Right hip [...] : R10.31 08/09/2020 Appointment: Triston Fern[facility]dez [facility] [phone] [facility] [facility] RE-ESTABLISH 08/09/2020 Care Plan: X-RAY EXAM NECK SPINE 4/5VWS LOINC : 13873-3 Pending 08/09/2020 Care Plan: X-RAY EXAM OF SHOULDER LOINC : 66960-9 Pending 08/09/2020 Care Plan: X-RAY EXAM OF HIP LOINC : 247 62-7 Pending 08/09/2020 Care Plan: X-RAY EXAM L-S SPINE 2/3 VWS LOINC : 26485-0 Pending 08/09/2020 Visit Plan: Pt is instructed [...] -evaluated. 01/13/2010 [facility]ment: [facility] [phone] [facility] [facility] 01/13/2010 Patient Education: Patient Medication [...] illness. 01/04/2010 App[facility]ment: [facility] [phone] [facility] [facility] 01/04/2010 Patient Education: Patient Medication Summary Completed 01/04/2010 Instructions Comment . Stop bystolic d/t bradycardia. Start m etoprolol. Echo and 24 hour holter monitor ordered. Referral sent to cardiology- Dr. Monzon. Discussed EKG with patient and her daughter. Questions answered. F/U before appt with any concerns. Go to ED/call 911 for chest pain or other severe symptoms. . Will send to [facility] now for EKG d/t arrhy thmia and [...]
[2021-06-28 09:43] LABS: HEMATOCRIT 41 % (35-52); HEMOGLOBIN 12.9 g/dL (11.5-16.0); MEAN CORPUSCULAR HEMOGLOBIN 31 pg (25-34); MEAN CORPUSCULAR HGB CONC 32 g/dL (32-36); MEAN CORPUSCULAR VOLUME 99 fL (80-99); MEAN PLATELET VOLUME 10.1 fL (9.0-12.2); PLATELET COUNT 226 10^3/uL (130-400); WHITE BLOOD COUNT 7.7 10^3/uL (4.3-11.0)
--- NOTE | 2021-06-28 09:47 | Diagnostic Imaging Report ---
EXAMINATION: Chest 1 view HISTORY: Chest pain, abnormal stress test COMPARISON: None available. FINDINGS: Heart size and pulmonary vasculature are normal. The lungs are clear without consolidation, pleural effusion, or pneumothorax. Degenerative changes of the thoracic spine. Osseous structures are otherwise intact. IMPRESSION: 1. No acute radiographic abnormality in the chest. Dictated by: Dictated on workstation # [id number]
[2021-06-28 09:56] LABS: INR 0.9 (0.8-1.4)
[2021-06-28 10:05] LABS: ALBUMIN 4.1 GM/DL (3.2-4.5); BILIRUBIN,TOTAL 0.6 MG/DL (0.1-1.0); CALCIUM 10.1 MG/DL (8.5-10.1); CREATININE SERUM 0.92 MG/DL (0.60-1.30); POTASSIUM 4.3 MMOL/L (3.6-5.0); TOTAL PROTEIN 7.6 GM/DL (6.4-8.2)
[~2021-06-28 11:00] MED LIST changes: -CATHETER FLUSH 10 ML SYR IV PRN; +FURO20TA4 PO; +HEParin (CATH LAB) 2,000 ML IV ONE; +LIDOCAINE 1% INJ 20 ML 20 ML VIAL ONE; +MTP25TSR PO; +NS IV 1000 ML 1,000 ML IV SCH; +NS IV 1000 ML 1,000 ML ONE; +OMG1KC PO; +POTA-51 PO; -REGADENOSON 0.4 MG/5 ML SYR (LEXISCAN) IV ONE; +TR1C15 TP
[2021-06-28] MEDS ORDERED: MIDAZOLAM 5 MG/5 ML (VERSED) VIAL ONE (12:07)
[2021-06-28] MEDS ORDERED: fentaNYL INJ 100 MCG/2 ML AMP ONE (12:07)
--- NOTE | 2021-06-28 12:11 | Conscious Sedation/ASA ---
Conscious Sedation Pre-Proced Time 12:11 ASA Score 3 For ASA 3 and 4: Consider anesthesia and medical clearance. Also, for patients with a history of failed moderate sedation consider anesthesia. Airway Lungs Heart ASA score ASA 1: a normal healthy patient ASA 2: a patient with a mild systemic disease (mid diabetes, controlled hypertension, obesity x ASA 3: a patient with a severe systemic disease that limits activity (angina, COPD, prior Myocardial infarction) ASA 4: a patient with an incapacitating disease that is a constant threat to life (CHF, renal failure) ASA 5: a moribund patient not expected to survive 24 hrs. (ruptured aneurysm) ASA 6: a declared brain- patient whose organs are being harvested. For emergent operations, add the letter E after the classification Mallampati Classification Grade 3 Sedation Plan Analgesia, Amnesia, Plan communicated to team members, Discussed options with patient/fam, Discussed risks with patient/fam The patient is an appropriate candidate to undergo the planned procedure, sedation, and anesthesia. The patient immediately re-assessed prior to indication. MARILEE CARLSON MD Jun 28, 2021 12:11
--- NOTE | 2021-06-28 12:54 | Discharge Inst-Post CATH ---
Discharge Inst-CATH/EP Problems Reviewed?: Yes Post Cardiac Cath/EP D/C Inst Follow Up/Plan Appointment with Dr. Monzon's office in 2 to 4 weeks <b>CARDIAC CATH/EP PROCEDURE DISCHARGE INSTRUCTIONS</b> ACTIVITY * Go Home directly and rest. * Limit activity of the leg (or wrist if it was used) for 7 days including aer obics, swimming, jogging, bicycling, etc. * Restrict stair-climbing for 7 days if possible, if not, climb up with your non-cath leg, then bring together on the same step. * Avoid lifting, pushing, pulling or excessive movement of the affected extremi ty for 7 days. * Customary sexual activity may be resumed after 2 days-use caution not to use a position that strains or causes pain to the affected extremity. * No driving for 24 hours. * NO SMOKING. * Avoid straining for bowel movements for 7 days. * Gentle walking on level ground is allowed. * Returning to work will depend on the type of procedure and the results. Your doctor will discuss this with you. CALL YOUR DOCTOR FOR ANY OF THE FOLLOWING: *If bleeding from the puncture site occurs- Apply gentle pressure to site with clean cloth and call your doctor or EMS. * If a knot or lump forms under the skin, increases in size, or causes pain. * If bruising appears to be worsening or moving further down your leg instead of disappearing. * Temperature above 101 F. CARE OF YOUR GROIN INCISION; * Bruising or purple discoloration of the skin near the puncture site is common. * You may shower only, no bathtub bathing for 5 days. Be careful to avoid slipping as your leg may feel stiff. * If a closure device was used on your femoral artery, please see the attached guide regarding care of the device and your leg. * Leave dressing on FOR 24 hours. CARE OF YOUR WRIST INCISION; * Bruising or purple discoloration of the skin near the puncture site is common. * You may shower. * DO NOT submerge wrist. * Leave dressing on FOR 24 hours. MARILEE MONZON MD Jun 28, 2021 12:54
--- NOTE | 2021-06-28 12:57 | Cardiac Cath Report ---
Cardiac Cath Report Physician (s)/Sales Planning Coordinator (s) Physician MARILEE CARLSON MD Pre-Procedure Diagnosis Pre-Procedure Diagnosis: Coronary artery disease Post-Procedure Note Procedure Start Date: Jun 28, 2021 Name of Procedure: Left heart catheterization Findings/Procedure Note PROCEDURE NOTE: 80-year-old lady with history of coronary artery disease, stenting, abnormal stress test, scheduled for cardiac catheterization possible PTCA. After explaining the procedure to the patient, all pros and cons were explained, all questions were answered. The patient signed the consent and then she was placed on the cardiac catheterization laboratory. Groin was prepped SL fashion local anesthesia was used. Sheath placed in the right femoral artery. Arturo right and left catheter were used to access the coronary system. Pigtail was used to access the left ventricular cavity. Left ventriculogram was not done, pressure was measured At the end of the procedure the sheath was removed. Closure device was deployed FINDINGS: Hemodynamics LV 146/16, end-diastolic pressure of 16 Aorta 136/73 mean of 103 ANATOMY: Left Main is free of obstructive disease Left Anterior Descending is slightly tortuous with mild disease nonobstructive disease Left Circumflex has mild disease nonobstructive disease Right Coronary Artery has mild disease proximally, no significant obstructive disease LV Gram was not done, pressure was measured CONCLUSION: 1. Mild coronary artery disease nonobstructive disease 2. Normal left ventricular end-diastolic pressure DISCUSSION AND RECOMMENDATION: Medical therapy is recommended no intervention is warranted Anesthesia Type: Conscious Sedation Estimated blood loss (mL): 10 ml Contrast Amount: 35 ml Total Radiation Dose: 241 mGy Post-Procedure Diagnosis Post-operative diagnosis: Chest pain Coronary artery disease Hypertension Hyperlipidemia MARILEE CARLSON MD Jun 28, 2021 12:57
[2021-06-28] MEDS ORDERED: NS IV 1000 ML 1,000 ML IV SCH (13:00)
[2021-06-28] MEDS ORDERED: PATIENT MAY USE OWN MEDS, ALL PO SCH (13:00)
== END 2021-06-28 18:15 | disposition home or self-care (01) ==
LOC: CATH 18:15
PROVIDERS: ATTEND Internal Medicine Cardiovascular Disease
DX: I25.10 Atherosclerotic heart disease of native coronary artery without angina pectoris (principal); I10 Essential (primary) hypertension; E78.5 Hyperlipidemia, unspecified; E78.2 Mixed hyperlipidemia; I49.1 Atrial premature depolarization; Z79.899 Other long term (current) drug therapy; Z90.89 Acquired absence of other organs; Z82.3 Family history of stroke
CPT/HCPCS: 71045; 80053; 80061; 85027; 85610; 85730; 87081; 93458; C1760; C1894 ×2; 36415

== ENCOUNTER 2021-11-17 05:39 | Outpatient (CLI) | payer MEDICARE, MEDICAID ==
[~2021-11-17] VITALS: Ht 152.4 cm; Wt 89.0 kg
[~2021-11-17 05:39] MED LIST changes: -HEParin (CATH LAB) 2,000 ML IV ONE; -LIDOCAINE 1% INJ 20 ML 20 ML VIAL ONE; -NS IV 1000 ML 1,000 ML IV SCH; -NS IV 1000 ML 1,000 ML ONE
== END 2021-12-05 17:32 | disposition home or self-care (01) ==
LOC: PREOP 05:39
PROVIDERS: ATTEND Specialist
DX: Z01.818 Encounter for other preprocedural examination (principal)

== ENCOUNTER 2021-11-24 09:01 | Day surgery (SDC) | payer MEDICARE, MEDICAID ==
[~2021-11-24] VITALS: Ht 152.4 cm; Wt 89.0 kg
--- NOTE | 2021-11-24 09:47 | Ophthalmologist Pre-Op Note ---
Pre-Operative Progress Note H&P Reviewed The H&P was reviewed, patient examined and no changes noted. Date H&P Reviewed: Nov 24, 2021 Time H&P Reviewed: 09:47 Pre-Op Dx Cataract, Right Eye EARL TAYLOR MD Nov 24, 2021 09:47
[2021-11-24 10:10] VITALS: BP 138/70
[2021-11-24] MEDS: TETRACAINE 0.5% OPHTH SOLN 4 ML BTL (SINGLE DOSE ONLY) OU PRN ×4 (10:19→10:36)
[2021-11-24] MEDS: TROPICAMIDE 1% OPH SOLN (MYDRIACYL) 15 ML BTL OP SCH ×3 (10:25→10:37)
[2021-11-24] MEDS: PHENYLEPHRINE 10% OPHTH (NEO-SYN) 5 ML BTL OU SCH ×3 (10:25→10:36)
[2021-11-24] MEDS ORDERED: LIDOCAINE PF 1% 2 ML VIAL IR PRN (10:30)
[2021-11-24] MEDS ORDERED: TIMOLOL MALEATE 0.5% 5 ML (TIMOPTIC) BTL OU PRN (10:30)
[2021-11-24] MEDS ORDERED: MOXIFLOXACIN OPHTH SOLN 5 MG/ML 0.3 ML SYRINGE OP ONE (10:30)
[2021-11-24] MEDS ORDERED: POVIDONE (BETADINE) OPHTH SOLN 5% 30 ML OP ONE (10:30)
[2021-11-24] MEDS ORDERED: MIDAZOLAM 2 MG/2 ML (VERSED) VIAL ONE (10:46)
--- NOTE | 2021-11-24 11:04 | Ophthalmology Operative Report ---
Cataract removal/placement IOL PREOPERATIVE DIAGNOSIS: Cataract Right Eye POSTOPERATIVE DIAGNOSIS: Cataract Right Eye PROCEDURE: Cataract removal and placement of posterior chamber implant, right eye SURGEON: Konrad Taylor ANESTHESIA: Topical with sedation COMPLICATIONS: None ESTIMATED BLOOD LOSS: Minimal DESCRIPTION OF PROCEDURE: After proper informed consent was obtained, the patient, a 81 female, was taken to the Operating Room and the right eye was anesthetized with tetracaine. The right eye was then prepped and draped in the usual manner. A wire lid speculum was placed. A paracentesis was made at the left hand position. Preservative free lidocaine was injected into the anterior chamber followed by viscoelastic. A clear corneal incision was made in the temporal position. A capsulorrhexis was preformed and the central nuclear and cortical material were removed. The posterior capsule was polished and Den 21.0 AU00T0 IOL was placed into the capsular bag. The residual viscoelastic was aspirated and balanced saline solution was injected into the anterior chamber. Moxifloxacin was injected into the anterior chamber. The wound was checked and found to be water tight. The patient tolerated the procedure well without complications. KONRAD TAYLOR MD Nov 24, 2021 11:04
[2021-11-24 11:10] VITALS: BP 138/70
--- NOTE | 2021-11-24 12:32 | Anesthesia-General Post-Op ---
MAC Patient Condition Mental Status/LOC: Same as Preop Cardiovascular: Satisfactory Nausea/Vomiting: Absent Respiratory: Satisfactory Pain: Controlled Complications: Absent Post Op Complications Complications None Follow Up Care/Instructions Patient Instructions None needed. Anesthesiology Discharge Order Discharge Order Patient is doing well, no complaints, stable vital signs, no apparent adverse anesthesia problems. No complications reported per nursing. LIZETTE BARBOSA CRNA Nov 24, 2021 12:32
== END 2021-11-24 11:20 | disposition home or self-care (01) ==
LOC: SDC 09:01
PROVIDERS: ATTEND Specialist
DX: H25.9 Unspecified age-related cataract (principal); E66.9 Obesity, unspecified; Z68.38 Body mass index [BMI] 38.0-38.9, adult
CPT/HCPCS: 66984; V2632

== ENCOUNTER 2021-12-08 10:52 | Day surgery (SDC) | payer MEDICARE, MEDICAID ==
[~2021-12-08] VITALS: Ht 152.4 cm; Wt 89.0 kg
[2021-12-08] MEDS: TETRACAINE 0.5% OPHTH SOLN 4 ML BTL (SINGLE DOSE ONLY) OU PRN ×4 (11:21→11:39)
[2021-12-08 11:25] VITALS: BP 150/74
[2021-12-08] MEDS: PHENYLEPHRINE 10% OPHTH (NEO-SYN) 5 ML BTL OU SCH ×3 (11:27→11:39)
[2021-12-08] MEDS: TROPICAMIDE 1% OPH SOLN (MYDRIACYL) 15 ML BTL OP SCH ×3 (11:27→11:39)
[2021-12-08] MEDS ORDERED: MOXIFLOXACIN OPHTH SOLN 5 MG/ML 0.3 ML SYRINGE OP ONE (11:30)
[2021-12-08] MEDS ORDERED: POVIDONE (BETADINE) OPHTH SOLN 5% 30 ML OP ONE (11:30)
[2021-12-08] MEDS ORDERED: TIMOLOL MALEATE 0.5% 5 ML (TIMOPTIC) BTL OU PRN (11:30)
[2021-12-08] MEDS ORDERED: LIDOCAINE PF 1% 2 ML VIAL IR PRN (11:30)
--- NOTE | 2021-12-08 12:02 | Ophthalmologist Pre-Op Note ---
Pre-Operative Progress Note H&P Reviewed The H&P was reviewed, patient examined and no changes noted. Date H&P Reviewed: Dec 08, 2021 Time H&P Reviewed: 12:01 Pre-Op Dx Cataract, Left Eye EARL TAYLOR MD Dec 08, 2021 12:01
[2021-12-08] MEDS ORDERED: MIDAZOLAM 2 MG/2 ML (VERSED) VIAL ONE (12:05)
--- NOTE | 2021-12-08 12:21 | Ophthalmology Operative Report ---
Cataract removal/placement IOL PREOPERATIVE DIAGNOSIS: Cataract Left Eye POSTOPERATIVE DIAGNOSIS: Cataract Left Eye PROCEDURE: Cataract removal and placement of posterior chamber implant, left eye SURGEON: Konrad Taylor ANESTHESIA: Topical with sedation COMPLICATIONS: None ESTIMATED BLOOD LOSS: Minimal DESCRIPTION OF PROCEDURE: After proper informed consent was obtained, the patient, a [id number] female, was taken to the Operating Room and the left eye was anesthetized with tetracaine. The left eye was then prepped and draped in the usual manner. A wire lid speculum was placed. A paracentesis was made at the left hand position. Preservative free lidocaine was injected into the anterior chamber followed by viscoelastic. A clear corneal incision was made in the temporal position. A capsulorrhexis was preformed and the central nuclear and cortical material were removed. The posterior capsule was polished and an Den 21.5 AU00T0 was placed into the capsular bag. The residual viscoelastic was aspirated and balanced saline solution was injected into the anterior chamber. Moxifloxacin was injected into the anterior chamber. The wound was checked and found to be water tight. The patient tolerated the procedure well without complications. KONRAD TAYLOR MD Dec 08, 2021 12:21
[2021-12-08 12:31] VITALS: BP 150/74
--- NOTE | 2021-12-08 12:54 | Anesthesia-General Post-Op ---
MAC Patient Condition Mental Status/LOC: Same as Preop Cardiovascular: Satisfactory Nausea/Vomiting: Absent Respiratory: Satisfactory Pain: Controlled Complications: Absent Post Op Complications Complications None Follow Up Care/Instructions Patient Instructions None needed. Anesthesiology Discharge Order Discharge Order Patient is doing well, no complaints, stable vital signs, no apparent adverse anesthesia problems. No complications reported per nursing. LIZETTE BARBOSA CRNA Dec 08, 2021 12:54
== END 2021-12-08 12:32 | disposition home or self-care (01) ==
LOC: SDC 10:52
PROVIDERS: ATTEND Specialist
DX: H25.9 Unspecified age-related cataract (principal); E66.9 Obesity, unspecified; Z68.38 Body mass index [BMI] 38.0-38.9, adult
CPT/HCPCS: 66984; V2632